=== PATIENT | female | born 1950 | race Caucasian/White ===

== ENCOUNTER → 2018-03-28 12:21 | Outpatient (CLI) | payer MEDICARE, OTHER, SELFPAY ==
--- NOTE | 2018-03-28 12:30 | BI_ITS ---
MAMMOGRAPHY - BILATERAL SCREENING REASON FOR EXAM: Female, 67 years old. Routine annual screening examination. PERTINENT HISTORY: Personal history of breast cancer. Daughter with breast cancer. Aunt with breast cancer. History of prior left lumpectomy with lymph node dissection and radiation therapy. TECHNIQUE: Digital bilateral breast melody (3D mammographic acquisition) in the CC and MLO projections. 2-D mediolateral oblique (MLO) and craniocaudad (CC) views of both breasts were obtained. CAD: Full Field Digital Mammography with Computer Added Detection was performed. COMPARISON: Comparison is made with prior study dated February 13, 2017 and February 02, 2016. FINDINGS: Breast Composition: There are scattered areas of fibroglandular density. There are no dominant masses or suspicious calcifications. The left breast is smaller than the right. This is unchanged. There is evidence of postsurgical changes in the axillary region of the left breast, in keeping with prior lumpectomy. Surgical clips are seen in the left axillary region. No other significant abnormalities are identified. There has been no significant change since the prior study. BI/SCREENING MAMM (CAD), BILAT IMPRESSION: Stable bilateral screening mammogram. Yearly follow-up mammogram recommended. (A) ASSESSMENT CATEGORY: BIRADS Category 2: Benign. A letter regarding these results will be sent to the patient by the facility within 30 days. Approximately 10% of breast cancers are not detected by mammography. A normal mammogram should not delay biopsy of a clinically suspicious abnormality. [id number] Electronically Signed: Zeke Metzger MD at 13:40 EST Tel [phone], Service support ,
== END ==
DX: Z12.31 Encounter for screening mammogram for malignant neoplasm of breast (principal)
CPT/HCPCS: 77063; 77067

== ENCOUNTER → 2019-03-31 10:28 | Outpatient (CLI) | payer MEDICARE, OTHER, SELFPAY ==
--- NOTE | 2019-03-31 10:34 | BI_ITS ---
MAMMOGRAPHY - BILATERAL SCREENING REASON FOR EXAM: Female, 68 years old. Routine annual screening examination. PERTINENT HISTORY: Personal history of breast cancer. Prior left lumpectomy and radiation treatment. Daughter with breast cancer. Aunt with breast cancer. TECHNIQUE: Digital bilateral breast thai (3D mammographic acquisition) in the CC and MLO projections. 2-D mediolateral oblique (MLO) and craniocaudad (CC) views of both breasts were obtained. CAD: Full Field Digital Mammography with Computer Added Detection was performed. COMPARISON: Comparison is made with prior examination dated March 28, 2018. FINDINGS: Breast Composition: There are scattered areas of fibroglandular density. There are no dominant masses or suspicious calcifications. Stable architectural distortion in the deep upper lateral aspect of the left breast in keeping with prior lumpectomy and radiation treatment. The left breast is once again smaller in size as compared to the right breast. No other significant abnormalities are identified. There has been no significant change since the prior study. BI/SCREEN MAMM (CAD) W/THAI BILAT IMPRESSION: Stable bilateral screening mammogram. Yearly follow-up mammogram recommended. (A) ASSESSMENT CATEGORY: BIRADS Category 2: Benign. A letter regarding these results will be sent to the patient by the facility within 30 days. Approximately 10% of breast cancers are not detected by mammography. A normal mammogram should not delay biopsy of a clinically suspicious abnormality. [id number] Electronically Signed: Zeke Metzger, at 11:12 EST , Service support ,
== END ==
DX: Z12.31 Encounter for screening mammogram for malignant neoplasm of breast (principal); C50.412 Malignant neoplasm of upper-outer quadrant of left female breast; I89.0 Lymphedema, not elsewhere classified
CPT/HCPCS: 77063; 77067

== ENCOUNTER → 2020-04-01 10:30 | Outpatient (CLI) | payer MEDICARE, OTHER, SELFPAY ==
--- NOTE | 2020-04-01 10:34 | BI_ITS ---
MAMMOGRAPHY - BILATERAL SCREENING REASON FOR EXAM: Female, 69 years old. Routine annual screening examination. PERTINENT HISTORY: Personal history of breast cancer. Prior left lumpectomy and radiation treatment. Daughter with breast cancer. Aunt with breast cancer. TECHNIQUE: Digital bilateral breast thai (3D mammographic acquisition) in the CC and MLO projections. 2-D mediolateral oblique (MLO) and craniocaudad (CC) views of both breasts were obtained. CAD: Full Field Digital Mammography with Computer Added Detection was performed. COMPARISON: Comparison is made with prior study dated 03/31/2019 and 03/28/2018.. FINDINGS: Breast Composition: There are scattered areas of fibroglandular density. There are no dominant masses or suspicious calcifications. Stable postoperative architectural distortion in the deep upper lateral aspect of the left breast in keeping with history of prior left lumpectomy. Small benign-appearing left axillary lymph nodes. No other significant abnormalities are identified. There has been no significant change since the prior study. BI/SCREEN MAMM (CAD) W/THAI BILAT IMPRESSION: Stable bilateral screening mammogram. Yearly follow-up mammogram recommended. (A) ASSESSMENT CATEGORY: BIRADS Category 2: Benign. A letter regarding these results will be sent to the patient by the facility within 30 days. Approximately 10% of breast cancers are not detected by mammography. A normal mammogram should not delay biopsy of a clinically suspicious abnormality. [id number] Electronically Signed: Zeke Metzger, at 11:31 EST , Service support ,
== END ==
PROVIDERS: Referring Provider Internal Medicine Hematology & Oncology; Visit Provider Internal Medicine Hematology & Oncology
DX: Z12.31 Encounter for screening mammogram for malignant neoplasm of breast (principal); Z85.3 Personal history of malignant neoplasm of breast
CPT/HCPCS: 77063; 77067

== ENCOUNTER 2021-04-05 11:56 | Outpatient (CLI) | payer MEDICARE, OTHER, SELFPAY ==
--- NOTE | 2021-04-05 11:59 | BI_ITS ---
MAMMOGRAPHY - BILATERAL SCREENING REASON FOR EXAM: Female, 70 years old. Routine annual screening examination. PERTINENT HISTORY: Personal history of breast cancer. Prior left lumpectomy with radiation treatment. Daughter with breast cancer. Aunt with breast cancer. TECHNIQUE: Digital bilateral breast thai (3D mammographic acquisition) in the CC and MLO projections. 2-D mediolateral oblique (MLO) and craniocaudad (CC) views of both breasts were obtained. CAD: Full Field Digital Mammography with Computer Added Detection was performed. COMPARISON: Comparison is made with prior study dated 04/01/2020 and 03/31/2019. FINDINGS: Breast Composition: There are scattered areas of fibroglandular density. There are no dominant masses or suspicious calcifications. Once again, the patient is status post lumpectomy in the upper deep lateral aspect of the left breast with resultant breast deformity. This is unchanged. No other significant abnormalities are identified. There has been no significant change since the prior study. BI/SCRN MAMM (CAD)W/THAI BILAT IMPRESSION: Stable bilateral screening mammogram. Yearly follow-up mammogram recommended. (A) ASSESSMENT CATEGORY: BIRADS Category 2: Benign. A letter regarding these results will be sent to the patient by the facility within 30 days. Approximately 10% of breast cancers are not detected by mammography. A normal mammogram should not delay biopsy of a clinically suspicious abnormality. [id number] Electronically Signed: Zeke Metzger MD at 13:54 EST , Service support ,
== END 2021-04-05 23:59 | disposition short-term general hospital (02) ==
LOC: OPBI 11:56
PROVIDERS: Referring Provider Internal Medicine Hematology & Oncology; Visit Provider Internal Medicine Hematology & Oncology
DX: Z12.31 Encounter for screening mammogram for malignant neoplasm of breast (principal); Z85.3 Personal history of malignant neoplasm of breast; Z80.3 Family history of malignant neoplasm of breast
CPT/HCPCS: 77063; 77067

== ENCOUNTER → 2022-04-06 | Outpatient (CLI) | payer MEDICARE, OTHER, SELFPAY ==
--- NOTE | 2022-04-06 10:04 | BI_ITS ---
MAMMOGRAPHY - BILATERAL SCREENING REASON FOR EXAM: Female, 71 years old. Routine annual screening examination. PERTINENT HISTORY: Personal history of breast cancer. Prior left lumpectomy and radiation treatment. Daughter with breast cancer. Aunt with breast cancer. TECHNIQUE: Digital bilateral breast thai (3D mammographic acquisition) in the CC and MLO projections. 2-D mediolateral oblique (MLO) and craniocaudad (CC) views of both breasts were obtained. CAD: Full Field Digital Mammography with Computer Added Detection was performed. COMPARISON: Comparison is made with prior study dated 04/05/2021 and 04/01/2020. FINDINGS: Breast Composition: There are scattered areas of fibroglandular density. There are no dominant masses or suspicious calcifications. Once again, the patient is status post lumpectomy in the deep upper lateral aspect of the left breast with resultant postoperative scarring. No other significant abnormalities are identified. There has been no significant change since the prior study. BI/SCRN MAMM (CAD)W/THAI BILAT IMPRESSION: Stable bilateral screening mammogram. Yearly follow-up mammogram recommended. (A) ASSESSMENT CATEGORY: BIRADS Category 2: Benign. A letter regarding these results will be sent to the patient by the facility within 30 days. Approximately 10% of breast cancers are not detected by mammography. A normal mammogram should not delay biopsy of a clinically suspicious abnormality. [id number] Electronically Signed: Zeke Metzger MD at 11:13 EST ,
== END | disposition home or self-care (01) ==
LOC: OPBI 10:02
PROVIDERS: Referring Provider Internal Medicine; Visit Provider Internal Medicine
DX: Z12.31 Encounter for screening mammogram for malignant neoplasm of breast (principal); Z80.3 Family history of malignant neoplasm of breast; Z85.3 Personal history of malignant neoplasm of breast; Z92.3 Personal history of irradiation
CPT/HCPCS: 77063; 77067

== ENCOUNTER → 2023-04-09 | Outpatient (CLI) | payer MEDICARE, OTHER, SELFPAY ==
--- NOTE | 2023-04-09 09:48 | BI_ITS ---
MAMMOGRAPHY - BILATERAL SCREENING REASON FOR EXAM: Female, 72 years old. Routine annual screening examination. PERTINENT HISTORY: Personal history of breast cancer. Prior left lumpectomy with radiation treatment. Daughter with breast cancer. Aunt with breast cancer. TECHNIQUE: Digital bilateral breast thai (3D mammographic acquisition) in the CC and MLO projections. 2-D mediolateral oblique (MLO) and craniocaudad (CC) views of both breasts were obtained. CAD: Full Field Digital Mammography with Computer Added Detection was performed. COMPARISON: Comparison is made with prior study dated April 06, 2022 and April 05, 2021. FINDINGS: Breast Composition: There are scattered areas of fibroglandular density. There are no dominant masses or suspicious calcifications. Once again, the patient is status post lumpectomy in the deep upper lateral aspect of the left breast. Postoperative changes are stable. No other significant abnormalities are identified. There has been no significant change since the prior study. BI/SCRN MAMM (CAD)W/THAI BILAT IMPRESSION: Stable bilateral screening mammogram. Yearly follow-up mammogram recommended. (A) ASSESSMENT CATEGORY: BIRADS Category 2: Benign. A letter regarding these results will be sent to the patient by the facility within 30 days. Approximately 10% of breast cancers are not detected by mammography. A normal mammogram should not delay biopsy of a clinically suspicious abnormality. [id number] Electronically Signed: Zeke Metzger MD at 10:32 EST ,
--- OUTSIDE RECORDS SUMMARY | 2023-04-09 10:12 | XMS RPT_ITS | CCD ---
Author Name Unknown Address 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 Name Role Phone ANU MENDOSA, RADHA Admitting Unavaila ble ANU MENDOSA NP Attending Unavaila ble PRATHER, NEREIDA Primary Care Unavailable PRATHER, NEREIDA Primary Care Unavailable BEDDELLFIORELLA Admitting Unavailable BEDFIORELLA GUPTA Attending Unavailable SELVIN GONZALES Consulting Unavailable AZALIA PENDLETON Consulting Unavailable Peter MORALES [facility] Primary Care Provider Peter MORALES [facility] Primary Care Provider [phone] Peter MORALES [facility] Primary Care Provider [phone] Peter MORALES [facility] Primary Care Provider SELVIN AYALA Referring Unavail able SELVIN AYALA Attending Unavail able PETER, NEREIDA Primary Care Unavailable PETER, NEREIDA Primary Care Unavailable KATHRYN NORTON Attending Unava ilable PETER, NEREIDA Primary Care Unavailable PETER, NEREIDA Primary Care Unavailable SEVERO WHITE Referring Unavailable SELVIN AYALA Referring Unavail able PETER, NEREIDA Primary Care Unavailable PETER, NEREIDA Primary Care Unavailable PETER, NEREIDA Referring Unavailable PETER, NEREIDA Primary Care Unavailable SUGAR HANKS Referring Unavailable PETER, NEREIDA Primary Care Unavailable CRISTÓBAL VALENCIA Referring Unavailable PETER, NEREIDA Primary Care Unavailable MIGUEL A, SIGIFREDO Referring Unavailable PETER, NEREIDA Primary Care Unavailable MIGUEL A, SIGIFREDO Referring Unavailable PETER, NEREIDA Primary Care Unavailable PETER, NEREIDA Primary Care Unavailable MIGUEL A, SIGIFREDO Referring Unavailable [facility] Primary Care Unavailable [facility] Referring Unavailable [facility] Primary Care Unavailable HANKS, SUGAR E Attending Unavailable [facility] Primary Care Unavailable MIGUEL A, SIGIFREDO Attending Unavailable [facility] Primary Care Unavailable HANKS, SUGAR E Referring Unavailable MIGUEL A, SIGIFREDO Attending Unavailable [facility] Primary Care Unavailable HANKS, SUGAR E Referring Unavailable [facility] Primary Care Unavailable HANKS, SUGAR E Attending Unavailable Allergies Allergy Classification Reported Allergen(s) Allergy Type Date of Onset Reaction(s) Facility (18 sources) Seasonal allergy; Translations: [SEASONAL ALLERGIES] Propensity to adverse reactions 7 Other: See Comments [facility] Medications Completed/Discontinued Medications Medication Drug Class(es) Dates Sig (Normalized) Sig (Original) CALCIUM CITRATE-VITAMIN D3 ORAL (15 sources) take 1 tablet by rosana th once daily CALCIUM CITRATE-VITAMIN D3 ORAL Take 1 tablet by mouth once daily. 0 Active Problems Active Problems Problem Classification Problem Date Documented Da te Episodic/Chronic Abdominal hernia (1 source) Diaphragmatic hernia without obstruction or gangrene; Translations: [DIAPH HERNIA W/O OBST/GANGRENE] Onset: 02-26-2021 Episodic Cancer of breast (15 sources) Malignant tumor of breast ; Translations: [Malignant neoplasm of unspecified site of unspecified female breast] 12-27-2016 Chronic Cancer of breast (2 sources) Personal history of malignant neoplasm of breast; Translations: [History of malignant neoplasm of breast] Onset: 02-26-2021 03-27-2023 Episodic Disorders of lipid metabolism (2 sources) Hyperlipidemia, unspecified; Translations: [HYPERLIPIDEMIA UNSPECIFIED] Onset: 02-26-2021 Chronic Esophageal disorders (17 sources) Gastro-esophageal reflux disease without esophagitis; Translations: [Gastroesophageal reflux disease] Onset: 11-28-2017 11-28-2017 Chronic Essential hypertension (2 sources) Essential (primary) hypertension; Translations: [Hypertension, unspecified type] Onset: 08-02-2022 Chronic Immunizations and screening for infectious disease (1 source) Contact with and (suspected) exposure to infections with a predominantly sexual mode of transmission; Translations: [Possible exposure to STD] Onset: 03-09-2023 Episodic Menopausal disorders (1 source) Long-term current use of thyroid hormone replacement therapy; Translations: [Hormone replacement therapy] Episodic Non-Hodgkin`s lymphoma (3 sources) Mantle cell lymphoma; Translations: [Mantle cell lymphoma, lymph nodes of axilla and upper limb] Onset: 04-02-2023 03-16-2023 Chronic Nutritional deficiencies (1 source) Vitamin D deficiency, unspecified; Translations: [Avitaminosis D] Onset: 08-14-2022 Chronic Osteoporosis (1 source) Age-related osteoporosis without current pathological fracture; Translations: [Age-related osteoporosis without current pathological fracture] Onset: 11-13-2022 Chronic Other aftercare (1 source) Patient encounter status; Translations: [Other senior care (current) drug therapy] Episodic Other aftercare (1 source) Long-term current use of levothyroxine; Translations: [Other senior care (current) drug therapy] Episodic Other diseases of veins and lymphatics (1 source) Lymphedema, not elsewhere classified; Translations: [LYMPHEDEMA NOT ELSEWHERE CLASSIFIED] Onset: 02-26-2021 Chronic Other female genital disorders (1 source) Other specified noninflammatory disorders of vagina; Translations: [Vaginal discharge] Onset: 03-09-2023 Episodic Other gastrointestinal disorders (2 sources) History of bypass of stomach; Translations: [Bariatric surgery status] Episodic Other hematologic conditions (1 source) History of histiocytosis; Translations: [Personal history of diseases of the blood and blood-forming organs and certain disorders involving the immune mechanism] 03-27-2023 Episodic Other inflammatory condition of skin (1 source) Erythema intertrigo; Translations: [ERYTHEMA INTERTRIGO] Onset: 02-26-2021 Episodic Other nutritional; endocrine; and metabolic disorders (2 sources) Localized adiposity; Translations: [LOCALIZED ADIPOSITY] Onset: 02-26-2021 Chronic Other upper respiratory infections (1 source) Acute upper respiratory infection, unspecified; Translations: [Upper respiratory tract infection, unspecified type] Onset: 03-09-2023 Episodic Residual codes; unclassified (15 sources) Sleep apnea; Translations: [Sleep apnea, unspecified] 12-27-2016 Chronic Residual codes; unclassified (1 source) Obstructive sleep apnea (adult) (pediatric); Translations: [Obstructive sleep apnea (adult) (pediatric)] Onset: 08-14-2022 Chronic Residual codes; unclassified (1 source) Personal history of irradiation; Translations: [PERSONAL HISTORY OF IRRADIATION] Onset: 02-26-2021 Episodic Thyroid disorders (20 sources) Hypothyroidism, unspecified; Translations: [Autoimmune thyroiditis] Onset: 09-03-2015 Chronic Unclassified (1 source) Radiology [place] Onset: 04-02-2023 Past or Other Problems Problem Classification Problem Date Documented Da te Episodic/Chronic Deficiency and other anemia (1 source) Other iron deficiency anemias; Translations: [Iron deficiency anemia secondary to inadequate dietary iron intake] Onset: 08-14-2022 Episodic Fluid and electrolyte disorders (15 sources) Dehydration; Translations: [Dehydration] Onset: 07-25-2017 07-25-2017 Episodic Lymphadenitis (9 sources) Localized enlarged lymph nodes; Translations: [Localized enlarged lymph nodes] Onset: 07-15-2022 Episodic Other aftercare (3 sources) 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; Translations: [[facility] CURRENT DRUG THERAPY] Onset: 02-26-2021 Episodic Other diseases of kidney and ureters (15 sources) Hydronephrosis; Translations: [Unspecified hydronephrosis] Onset: 11-08-2017 11-08-2017 Episodic Other gastrointestinal disorders (3 sources) Bariatric surgery status; Translations: [BARIATRIC SURGERY STATUS] Onset: 02-26-2021 Episodic Other non-traumatic joint disorders (15 sources) Stiffness of right shoulder; Translations: [Stiffness of right shoulder, not elsewhere classified] Onset: 01-22-2017 01-22-2017 Episodic Results Test Name Value Interpretation Reference Range Facil ity Vital Signs Date Time Vital Sign Value Performing Clinician Douglas muñiz 09-12-2022 12:51-0400 Body height 160 cm Selvin Ayala MD Work Phone: [facility] 09-12-2022 12:51-0400 Body weight 88 kg Selvin Ayala MD Work Phone: [facility] 09-12-2022 12:51-0400 Diastolic blood pressure 70 mm[Hg] Selvin Ayala MD Work Phone: [facility] 09-12-2022 12:51-0400 Heart rate 81 /min Selvin Ayala MD Work Phone: [facility] 09-12-2022 12:51-0400 Systolic blood pressure 109 mm[Hg] Selvin Ayala MD Work Phone: [facility] 01-17-2022 12:44-0400 Body height 160 cm Sugar Hanks MD Work Phone: [facility] 01-17-2022 12:44-0400 Body weight 83.46 kg Sugar Hanks MD Work Phone: [facility] 01-17-2022 12:44-0400 Diastolic blood pressure 82 mm[Hg] Sugar Hanks MD Work Phone: [facility] 01-17-2022 12:44-0400 Heart rate 70 /min Sugar Hanks MD Work Phone: [facility] 01-17-2022 12:44-0400 Systolic blood pressure 130 mm[Hg] Sugar Hanks MD Work Phone: [facility] 09-20-2021 13:06-0400 Body height 160 cm Selvin Ayala MD Work Phone: [facility] 09-20-2021 13:06-0400 Body weight 82.37 kg Selvin Ayala MD Work Phone: [facility] 09-20-2021 13:06-0400 Diastolic blood pressure 71 mm[Hg] Selvin Ayala MD Work Phone: [facility] 09-20-2021 13:06-0400 Heart rate 74 /min Selvin Ayala MD Work Phone: [facility] 09-20-2021 13:06-0400 Systolic blood pressure 134 mm[Hg] Selvin Ayala MD Work Phone: [facility] Encounters Encounter Date Encounter Type Care Provider Facility Start: 04-04-2023 End: 04-04-2023 ambulatory NEREIDA GREEN Facility:[facility] Start: 04-04-2023 Encounter for preprocedural cardiovascular examination NEREIDA GREEN [facility] Start: 04-02-2023 ambulatory SIGIFREDO MIGUEL A Facili ty:[facility] Start: 03-16-2023 End: 03-17-2023 ambulatory NEREIDA GREEN Facility:[facility] Start: 03-16-2023 End: 03-16-2023 ambulatory SIGIFREDO MIGUEL A Facility:[facility] Start: 03-16-2023 End: 03-16-2023 ambulatory Sigifredo Rubin MD Work Phone: Hematology/Oncology Procedures Date Procedure Procedure Detail Performing Clinician Start: 02-21-2023 Ct soft tissue neck w/contrast material Nereida Green MD Work Phone: Start: 11-13-2022 Dxa bone density alondra dy 1/> sites axial skel Nereida Green MD Work Phone: Start: 08-02-2022 Lipid 1996 panel - S naa or Plasma Pietro Davis RN Start: 07-19-2022 Ct soft tissue neck w/contrast material Sugar Hanks MD Work Phone: Start: 01-16-2022 Ct soft tissue neck w/contrast material Nereida Green MD Work Phone: Start: 03-28-2018 Mammography Selvin ko MD Work Phone: Plan of Treatment Date Care Activity Detail Author Start: 05-10-2031 Urine microalbumin profile [facility] Start: 08-03-2027 Lipid 1996 panel - Serum or Plasma Lipid Screening [facility] Start: 08-03-2027 Lipid panel Lipid Screening [facility] Start: 08-03-2027 LIPID SCREEN LIPID SCREEN [facility] Start: 02-01-2027 LIPID SCREEN LIPID SCREEN [facility] Start: 08-25-2026 LIPID SCREEN LIPID SCREEN [facility] Start: 03-16-2026 Diabetes Screening Diabetes Screening [facility] Start: 08-02-2025 DIABETES SCREEN DIABETES SCREEN [facility] Start: 08-02-2025 Diabetes Screening Diabetes Screening [facility] Start: 02-01-2025 DIABETES SCREEN DIABETES SCREEN [facility] Start: 08-25-2024 DIABETES SCREEN DIABETES SCREEN [facility] Start: 03-30-2023 End: 03-16-2024 Echocardiography ECHO Cardiology Routine Mantle cell lymphoma of axilla (HCC) Encounter for preprocedural cardiovascular examination Expected: 03/30/2023, Expires: 03/16/2024 [facility] Work Phone: Immunizations Immunization Date Immunization Notes Care Provider Fa cility 05-10-2021 tetanus toxoid, redu boone diphtheria toxoid, and acellular pertussis vaccine, adsorbed Selvin Ayala MD Work Phone: [facility] 01-31-2021 influenza virus vacc ine, unspecified formulation Selvin Ayala MD Work Phone: [facility] 06-27-2016 pneumococcal polysaccharide vaccine, 23 valent Selvin Ayala MD Work Phone: [facility] Work Phone: 06-26-2016 pneumococcal conjuga te vaccine, 7 valent Selvin Ayala MD Work Phone: [facility] Work Phone: 07-28-2011 tetanus and diphther ia toxoids, adsorbed, preservative free, for adult use (5 Lf of tetanus toxoid and 2 Lf of diphtheria toxoid) Selvin Ayala MD Work Phone: [facility] Work Phone: 01-28-2009 novel influenza-H1N1 -09, preservative-free, injectable Selvin Ayala MD Work Phone: [facility] Work Phone: Payers Date Payer Category Payer Private Health Insurance [employer] A ETNA MEDICARE SUPPLEMENT [id number] 2016-Present [phone] [address] [address] [place] [address] Indemnity [id number] 2016 Private Health Insurance [employer] A ETNA MEDICARE SUPPLEMENT [id number] 2016-Present [phone] [address] [address] [place] [address] Indemnity [id number] 2015 Medicare MEDICARE MEDICAR E A AND B [id number] 2015-Present [phone] [place] [address] Medicare [id number] 2015 Medicare MEDICARE MEDICAR E A AND B [id number] 2015-Present [phone] [place] [address] Medicare [id number] 1959 Medicare [id number] 1959 Medicare [id number] 1950 Unknown [id number] 1950 Unknown [id number] Social History Date Type Detail Facility Start: 12-04-2011 End: 09-06-2015 Tobacco smoking status NHIS Never smoked tobacco [facility] Start: 12-04-2011 End: 09-06-2015 Tobacco use and exposure Smokeless tobacco non-user [facility] Start: 09-20-2021 End: 03-27-2023 Alcohol intake Current non-drinker of alcohol (finding) [facility] Start: 1950 Sex Assigned At Female [facility] Start: 09-10-2021 End: 01-16-2022 Exposure to SARS-CoV-2 (event) Not sure [facility] Start: 10-12-2018 End: 09-12-2022 History of Social function [facility] Start: 10-12-2018 End: 09-12-2022 Tobacco use panel [facility] PHQ2 Score 0 [facility] Start: 12-12-2018 Gender identity Identifies as female gender (finding) [facility] Start: 12-12-2018 Sexual orientation Heterosexual (jam duron) [facility] Goals Date Patient Goal Desired Activity /State Personal health goal Clinical Notes 01-05-2017 to 04-02-2023 Patient InstructionsSigifredo Rubin MD - 03/16/2023 2:56 PM Sugar Adams MD - 03/07/2023 9:12 AM Sugar Adams MD - 03/07/2023 9:01 AM ESTPatient InstructionsPatient Instructions Note Date & Type Note Facility 04-02-2023 Note HNO ID: [id number] Author: ESTEVAN PHIPPS RT(R) Service: Radiology Author Type: Technologist Type: Progress Notes Filed: 04/02/2023 12:18 Note Text: RADIOLOGY SERVICE PROGRESS NOTE SERVICE DATE: 04/02/2023 SERVICE TIME: 12:17 PM PATIENT IDENTITY VERIFICATION COMPLETED USING TWO (2) STANDARD IDENTIFIERS: Name and Date of confirmed by patient verbally FALL SCREENING: Has the patient had 2 falls in the last year or 1 fall with injury or currently using an Ambulatory Assistive Device (Walker, Cane, Wheelchair, Crutches, etc.)? No PATIENT GENDER DATA: .female : No ALLERGIES: Reviewed and unchanged MEDICATIONS REVIEWED: Yes PATIENT RELEVANT IMPLANT DATA REVIEWED: Not Applicable CREATININE: Creatinine Date Value Ref Range Status 03/16/2023 0.82 0.58 - 0.96 mg/dL Final 02/19/2023 0.93 0.58 - 0.96 mg/dL Final 08/02/2022 0.96 0.58 - 0.96 mg/dL Final Estimated Glomerular Filtration Rate Date Value Ref Range Status 03/16/2023 76 >=60 mL/min/1.73m? Final Comment: Estimated Glomerular Filtration Rate (eGFR) is calculated using the 2020 CKD-EPI creatinine equation. This equation utilizes serum creatinine, sex, and age as parameters. The creatinine assay has traceable calibration to isotope dilution-mass spectrometry. Refer to KDIGO guidelines for clinical interpretation. In patients with unstable renal function, e.g. those with acute kidney injury, the eGFR may not accurately reflect actual GFR. eGFR- Date Value Ref Range Status 01/18/2021 >60 Final P.O.C.T. RESULTS: N/A April 02, [address] PERFORMED: No IV SITE: Ambulatory: A peripheral IV was started in the Right antecubital site with a Angio cath: 22 gauge. POST EXAM PIV STATUS: Discontinued PROCEDURE TYPE: NM INJECT: PET/CT BODY SCAN. 14.8 mCi F18 FDG. No other medications given.. ADMINISTRATION TIME: 1207 PATIENT DISCHARGED TO: Ambulatory patient, left [place] department area. A Diagnostic radioactive procedure has taken place, with no further precautions necessary other than routine body substance precautions. More information regarding radiation safety can be found using this link: [email or web address] SIGNATURE: RT Isaías(R) PATIENT NAME: Pavan Covington DATE: April 02, 2023 TIME: 12:17 PM PAGER/CONTACT #: [facility] 03-16-2023 Note HNO ID: [id number] Author: Sigifredo Rubin MD Service: ? Author Type: Physician Type: Progress Notes Filed: 03/27/2023 3:12 AM Note Text: Consultation requested by Dr. Sugar Hanks for an opinion regarding mantle cell lymphoma. My final recommendations will be communicated back to the requesting physician by way of shared Medical record or letter to requesting physician via US mail. Presenting complaint: Patient Pavan Covington was sent to my office to be evaluated for mantle cell lymphoma. 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 02/02/2003 left sentinel lymph node biopsy ( three reactive lymph nodes with sinus histiocytosis) and left axillary dissection (14 reactive lymph nodes with sinus histiocytosis) 02/2003 radiation therapy to left breast [phone] tamoxifen x 10 years 05/10/2021 fall with hitting head on the car requiring ER visit 05/10/2021 CT head demonstrating 8 mm left parotid lymph node or nodule 01/16/2022 CT neck showed multiple nonspecific lymph nodes mildly increased in size since 200607/19/2022 CT neck showed scattered cervical lymph nodes which likely reactive. Minimal increase in size of the right axillary lymph nodes since 01/16/2022 02/21/2023 CT neck showed mildly prominent cervical lymph nodes, mildly increasing size of right axillary nodes, mild interval increase in size of the 6 mm nodule in the right upper lung 03/07/2023 right axillary lymph node FNA revealed atypical lymphoid proliferation suspicious for lymphoma. FISH was positive for cyclin D1 concerning for diagnosis of mantle cell lymphoma 03/14/2023 right excisional axillary lymph node biopsy revealed mantle cell lymphoma. Mantle cells were positive for CD5, CD20, Cyclin D1, BCL2. Mantle cells were negative for CD3, CD10, BCL6. Ki-67 was <10%. 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 It is unknown at this time if there association between sinus histiocytosis and mantle cell lymphoma. Plan to proceed with staging PET/CT and ECHO to determine management of mantle cell lymphoma. A low Ki-67 index (<10%) may indicate a more indolent disease course and could justify a watch and wait approach. Plan to obtain CBC, CPM, LDH, remote hepatitis panel, tumor lysis labs to include uric acid and phosphorus. 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 02/02/2003 left sentinel lymph node biopsy ( three reactive lymph nodes with sinus histiocytosis) and left axillary dissection (14 reactive lymph nodes with sinus histiocytosis) 02/2003 adjuvant radiation therapy to left breast [phone] adjuvant tamoxifen x 10 years Plan: history was reviewed Return in about 25 days (around 04/10/2023) for follow-up with provider. 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 She underwent left sentinel lymph node biopsy ( three reactive lymph nodes with sinus histiocytosis) and left axillary dissection (14 reactive lymph nodes with sinus histiocytosis) on 02/02/2003. She completed adjuvant radiation therapy to left breast in Feb 2003. She completed adjuvant tamoxifen x 10 years. Patient had a fall with hitting head on the car requiring ER visit on 05/10/2021. CT head on 05/10/2021 demonstrated 8 mm left parotid lymph node or nodule. Radiologist recommended repeat in [address] neck on 01/16/2022 showed multiple nonspecific lymph nodes mildly increased in size since 2006. Repeat CT neck on 07/19/2022 showed scattered cervical lymph nodes which likely reactive. Minimal increase in size of the right axillary lymph nodes was noted since 01/16/2022. Repeat CT neck on 02/21/2023 showed mildly prominent cervical lymph nodes, mildly inc (more content not included)... [facility] 03-16-2023 Note HNO ID: [id number] Author: Sigifredo Rubin MD Service: ? Author Type: Physician Type: Progress Notes Filed: 03/16/2023 2:36 PM Note Text: Dr. Rubin agreed to see patient at [place] office. Written communication was sent by Dr. Rubin asking to schedule at [place] office. Patient was roomed at 1:14 pm in [place] after Dr. Rubin left office to go to [place] Office at 1:00 pm. Patient agreed to be seen at [place] office at 2:30 pm. Sigifredo Rubin MD March 16, 2023 2:34 PM [facility] 03-16-2023 Instructions Sigifredo Rubin MD - 03/16/2023 3:13 PM EST Please send patient to lab today Please schedule PET/CT in 2 weeks Please schedule ECHO in 2 weeks Please schedule follow-up on 04/10/[address] [place] [address] Rubin Thank you documented in this encounter [facility] 03-16-2023 History of Present illness Narrative Consultation requested by Dr. Sugar Hanks for an opinion regarding mantle cell lymphoma. My final recommendations will be communicated back to the requesting physician by way of shared Medical record or letter to requesting physician via [place] mail. Presenting complaint: Patient Pavan Covington was sent to my office to be evaluated for mantle cell lymphoma. 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 02/02/2003 left sentinel lymph node biopsy ( three reactive lymph nodes with sinus histiocytosis) and left axillary dissection (14 reactive lymph nodes with sinus histiocytosis) 02/2003 radiation therapy to left breast [phone] tamoxifen x 10 years 05/10/2021 fall with hitting head on the car requiring ER visit 05/10/2021 CT head demonstrating 8 mm left parotid lymph node or nodule 01/16/2022 CT neck showed multiple nonspecific lymph nodes mildly increased in size since 200607/19/2022 CT neck showed scattered cervical lymph nodes which likely reactive. Minimal increase in size of the right axillary lymph nodes since 01/16/2022 02/21/2023 CT neck showed mildly prominent cervical lymph nodes, mildly increasing size of right axillary nodes, mild interval increase in size of the 6 mm nodule in the right upper lung 03/07/2023 right axillary lymph node FNA revealed atypical lymphoid proliferation suspicious for lymphoma. FISH was positive for cyclin D1 concerning for diagnosis of mantle cell lymphoma 03/14/2023 right excisional axillary lymph node biopsy revealed mantle cell lymphoma. Mantle cells were positive for CD5, CD20, Cyclin D1, BCL2. Mantle cells were negative for CD3, CD10, BCL6. Ki-67 was <10%. 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 It is unknown at this time if there association between sinus histiocytosis and mantle cell lymphoma. Plan to proceed with staging PET/CT and ECHO to determine management of mantle cell lymphoma. A low Ki-67 index (<10%) may indicate a more indolent disease course and could justify a watch and wait approach. Plan to obtain CBC, CPM, LDH, remote hepatitis panel, tumor lysis labs to include uric acid and phosphorus. 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 02/02/2003 left sentinel lymph node biopsy ( three reactive lymph nodes with sinus histiocytosis) and left axillary dissection (14 reactive lymph nodes with sinus histiocytosis) 02/2003 adjuvant radiation therapy to left breast [id number] adjuvant tamoxifen x 10 years Plan: history was reviewed Return in about 25 days (around 04/10/2023) for follow-up with provider. Medical Decision Making: Problems: High: Illness/injury w/ threat to life/body function Data: Unique test result(s) reviewed: 3+ Assessment requiring an independent historian(s) Independent interpretation of test from other physician/QHCP Risk: Moderate: Moderate risk from testing/treatment Medical Decision Making Level: 5 - High HPI: Patient is a delightful 72 year old lady with history of left grade 2 invasive ductal carcinoma with ER+, MD+ status post left lumpectomy on 01/22/2003. She underwent left sentinel lymph node biopsy ( three reactive lymph nodes with sinus histiocytosis) and left axillary dissection (14 reactive lymph nodes with sinus histiocytosis) on 02/02/2003. She completed adjuvant radiation therapy to left breast in Feb 2003. She completed adjuvant tamoxifen x 10 years. Patient had a fall with hitting head on the car requiring ER visit on 05/10/2021. CT head on 05/10/2021 demonstrated 8 mm left parotid lymph node or nodule. Radiologist recommended repeat in [address] neck on 01/16/2022 showed multiple nonspecific lymph nodes mildly increased in size since 2006. Repeat CT neck on 07/19/2022 showed scattered cervical lymph nodes which likely reactive. Minimal increase in size of the right axillary lymph nodes was noted since 01/16/2022. Repeat CT neck on 02/21/2023 showed mildly prominent cervical lymph nodes, mildly increasing size of right axillary nodes, mild interval increase in size of the 6 mm nodule in the right upper lung. She underwent right axillary lymph node FNA on 03/07/2023 revealed atypical lymphoid proliferation suspicious for lymphoma. FISH was positive for cyclin D1 concerning for diagnosis of mantle cell lymphoma. The right excisional axillary lymph node biopsy on 03/14/2023 revealed mantle cell lymphoma. Mantle cells were positive for CD5, CD20, Cyclin D1, BCL2. Mantle cells were negative for CD3, CD10, BCL6. Ki-67 was <10%. Patient is very anxious. Her from melanoma at age 40 years. 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 Lymphedema Overweight Radiation Sleep apnea Thyroid disease PAST SURGICAL HISTORY Procedure Laterality Date BIOPSY/REMOVAL, LYMPH NODE(S) Left 2002 17-removed axillary CHOLECYSTECTOMY HX lap CPD FLOWTRON SLEEVE X-LG (BARIATRIC) (SP) 05/2017 Sleeve D+C LUMPECTOMY/RADIOTHERAPY DIAG MAMM/A10 Left 2002 NASAL SURGERY PROCEDURE ROTATOR CUFF REPAIR Right 2017 TONSILLECTOMY HX Childhood TUBAL LIGATION, FAMILY HISTORY Problem Relation Age of Onset Thyroid Mother Unclear thyroid issue Osteoporosis Mother Breast Cancer Paternal Aunt Stroke Father Thyroid Father Thyroid cancer SOCIAL HISTORY Social History Tobacco Use Smoking status: Never Smokeless tobacco: Never Vaping Use Vaping Use: Never used Substance Use Topics Alcohol use: No Drug use: No ALLERGIES: ALLERGIES Allergen Reactions Seasonal Allergies Other: See Comments Sore throat MEDICATIONS: Current Outpatient Medications Medication Sig levothyroxine (SYNTHROID) 112 mcg tablet Take 1 tablet by mouth once daily. ZINC ORAL Take by mouth. simvastatin (ZOCOR) 10 mg tablet Take 10 mg by mouth daily at bedtime. Omeprazole 40 mg capsule Take 40 mg by mouth once daily. MULTIVITAMIN ORAL Take by mouth once daily. Bariatric vitamin CALCIUM CITRATE-VITAMIN D3 ORAL Take 1 tablet by mouth once daily. No current facility-administered medications for this visit. REVIEW OF SYSTEMS: Review of Systems Constitutional: Negative for chills and fatigue. HENT: Negative for mouth sores and trouble swallowing. Eyes: Negative for eye problems and icterus. Respiratory: Negative for chest tightness, cough, hemoptysis and shortness of breath. Cardiovascular: Negative for chest pain and palpitations. Gastrointestinal: Negative for abdominal pain and blood in stool. Endocrine: Negative for hot flashes. Genitourinary: Negative for difficulty urinating and hematuria. Musculoskeletal: Negative for back pain, gait problem and neck pain. Skin: Negative for itching, rash and wound. Neurological: Negative for gait problem and light-headedness. Hematological: Positive for adenopathy. Does not bruise/bleed easily. Psychiatric/Behavioral: Negative for decreased concentration and depression. The patient is nervous/anxious. PHYSICAL EXAMINATION: VITALS: BP 162/98 RR 19 HR 82 T 98F Height 159.9 cm Weight 88.8 kg Physical Exam Vitals and nursing note reviewed. Constitutional: General: She is not in acute distress. Appearance: She is not toxic-appearing or diaphoretic. HENT: Head: Normocephalic and atraumatic. Eyes: General: No scleral icterus. Neck: Comments: No bulky cervical, axillary or inguinal adenopathy Cardiovascular: Rate and Rhythm: Normal rate and regular rhythm. Heart sounds: Normal heart sounds. No murmur heard. Pulmonary: Effort: Pulmonary effort is normal. No respiratory distress. Breath sounds: Normal breath sounds. Abdominal: General: There is no distension. Tenderness: There is no abdominal tenderness. There is no guarding or rebound. Comments: No hepatosplenomegaly Musculoskeletal: General: No swelling. Cervical back: Neck supple. No rigidity. Lymphadenopathy: Cervical: No cervical adenopathy. Skin: Coloration: Skin is not jaundiced or pale. Neurological: Mental Status: She is alert. Mental status is at baseline. Psychiatric: Mood and Affect: Mood normal. Behavior: Behavior normal. Thought Content: Thought content normal. Judgment: Judgment normal. LABS: Appointment on 03/16/2023 Component Date Value Ref Range Status WBC 03/16/2023 7.06 3.70 - 11.00 k/uL Final RBC 03/16/2023 4.70 3.90 - 5.20 m/uL Final Hemoglobin 03/16/2023 13.1 11.5 - 15.5 g/dL Final Hematocrit 03/16/2023 39.9 36.0 - 46.0 % Final MCV 03/16/2023 84.9 80.0 - 100.0 fL Final MCH 03/16/2023 27.9 26.0 - 34.0 pg Final MCHC 03/16/2023 32.8 30.5 - 36.0 g/dL Final RDW-CV 03/16/2023 13.0 11.5 - 15.0 % Final Platelet Count 03/16/2023 285 150 - 400 k/uL Final MPV 03/16/2023 9.5 9.0 - 12.7 fL Final Neutrophils % 03/16/2023 63.0 % Final Abs Neut 03/16/2023 4.46 1.45 - 7.50 k/uL Final Lymphocytes % 03/16/2023 27.8 % Final Abs Lymph 03/16/2023 1.96 1.00 - 4.00 k/uL Final Monocytes % 03/16/2023 6.7 % Final Abs Bartholomew 03/16/2023 0.47 <0.87 k/uL Final Eosinophils % 03/16/2023 1.6 % Final Abs Eosin 03/16/2023 0.11 <0.46 k/uL Final Basophils % 03/16/2023 0.6 % Final Abs Baso 03/16/2023 0.04 <0.11 k/uL Final Immature Granulocytes % 03/16/2023 0.3 % Final Abs Immature Gran 03/16/2023 <0.03 <0.10 k/uL Final NRBC 03/16/2023 0.0 /100 WBC Final Absolute nRBC 03/16/2023 <0.01 <0.01 k/uL Final Diff Type 03/16/2023 Auto Final Protein, Total 03/16/2023 7.8 6.3 - 8.0 g/dL Final Albumin 03/16/2023 3.9 3.9 - 4.9 g/dL Final Calcium, Total 03/16/2023 9.0 8.5 - 10.2 mg/dL Final Bilirubin, Total 03/16/2023 0.2 0.2 - 1.3 mg/dL Final Alkaline Phosphatase 03/16/2023 114 34 - 123 U/L Final AST 03/16/2023 18 13 - 35 U/L Final ALT 03/16/2023 16 7 - 38 U/L Final Glucose 03/16/2023 147 (H) 74 - 99 mg/dL Final BUN 03/16/2023 13 7 - 21 mg/dL Final Creatinine 03/16/2023 0.82 0.58 - 0.96 mg/dL Final Sodium 03/16/2023 140 136 - 144 mmol/L Final Potassium 03/16/2023 3.7 3.7 - 5.1 mmol/L Final Chloride 03/16/2023 103 97 - 105 mmol/L Final CO2 03/16/2023 28 22 - 30 mmol/L Final Anion Gap 03/16/2023 9 9 - 18 mmol/L Final Estimated Glomerular Filtration Ra* 03/16/2023 76 >=60 mL/min/1.73m Final LD 03/16/2023 220 (H) 135 - 214 U/L Final Uric Acid 03/16/2023 4.4 2.5 - 6.6 mg/dL Final Phosphorus 03/16/2023 3.5 2.7 - 4.8 mg/dL Final Hep C Antibody IA 03/16/2023 Negative Negative Final HBsAg 03/16/2023 Negative Negative Final Hep B Surface Ab, Qual 03/16/2023 Negative Final No serological evidence of immunity to Hepatitis B Virus. Hep B Surface Ab Quant 03/16/2023 <8.00 mIU/mL Final Hepatitis B Core Ab, Total 03/16/2023 Negative Negative Final RADIOLOGICAL REPORTS: 05/10/2021 CT head demonstrating 8 mm left parotid lymph node or nodule 01/16/2022 CT neck showed multiple nonspecific lymph nodes mildly increased in size since 200607/19/2022 CT neck showed scattered cervical lymph nodes which likely reactive. Minimal increase in size of the right axillary lymph nodes since 01/16/2022 02/21/2023 CT neck showed mildly prominent cervical lymph nodes, mildly increasing size of right axillary nodes, mild interval increase in size of the 6 mm nodule in the right upper lung HISTO PATHOLOGICAL REPORT: SURGICAL PATHOLOGY: [id number] Collected 03/14/2023 FINAL DIAGNOSIS Lymph node, right axillary, biopsy: - Mantle cell lymphoma, predominantly mantle zone pattern. - See comment. Diagnosis Comment Histologic sections show fragments of lymph node with the architecture preserved. The sinuses are patent. There are numerous secondary follicles with preserved polarization of germinal centers and expanded mantles. Immunohistochemical stains have been performed with appropriately staining controls. The mantle cells are positive for CD5, CD20, Cyclin D1, BCL2. Less than 10% of these cells stain for Ki-67. They are negative for CD3, CD10, BCL6. Networks of follicular dendritic cells stain for CD21. In conclusion, the findings are diagnostic of mantle cell lymphoma. The predominant pattern of the neoplasm is mantle zone, a rare variant with a favorable clinical prognosis. An immunohistochemical stain for p53 has been ordered, when available, the results will be included in an addendum. Molecular studies for TP53 mutations have been ordered, the results will be reported in the electronic medical record. Sigifredo Rubin MD Cc: MD Nereida Arciniega MD documented in this encounter [facility] 03-14-2023 Note HNO ID: [id number] Author: Sugar Hanks MD Service: ? Author Type: Physician Type: Progress Notes Filed: 03/16/2023 8:51 AM Note Text: UNIVERSAL PROTOCOL / SAFETY CHECKLIST Procedure to be Performed: Ultrasound-guided right axillary lymph node core biopsy Sign In: A Moment of CARE was completed. Personnel directly involved with the procedure wore the appropriate PPE (Personal Protective Equipment). Patient/Surrogate Stated/Verified: PATIENT VERIFIED(optional for EMERGENT procedures): Patient name, Date of , Relevant allergies, and The intended procedure Time Out Communication: Intended patient and procedure match the source documents. Consent documented and matches the intended procedure. Procedure: After informed consent was obtained, the right axilla was prepped with alcohol and anesthetized with 1% lidocaine without epinephrine. Small incision was made with 11 blade scalpel. Using ultrasound guidance, multiple core biopsies were obtained using the 15-gauge Georgi-Cut needle. These were placed in formalin and sent to pathology. There was minimal bleeding. Steri-Strip applied. She tolerated the procedure well. Sign Out: SIGN OUT (optional for EMERGENT procedures): All specimen containers correctly labeled. Sugar Hanks MD [facility] 03-07-2023 Note HNO ID: [id number] Author: Sugar Hanks MD Service: ? Author Type: Physician Type: Progress Notes Filed: 03/07/2023 4:20 PM Note Text: UNIVERSAL PROTOCOL / SAFETY CHECKLIST Procedure to be Performed: Ultrasound guided fine needle aspiration of right axillary lymph node Sign In: A Moment of CARE was completed. Personnel directly involved with the procedure wore the appropriate PPE (Personal Protective Equipment). Patient/Surrogate Stated/Verified: PATIENT VERIFIED(optional for EMERGENT procedures): Patient name, Date of , Relevant allergies, and The intended procedure Time Out Communication: Intended patient and procedure match the source documents. Consent documented and matches the intended procedure. Procedure: After informed consent was obtained, the right axilla was prepped with ChloraPrep and anesthetized with 1% lidocaine. Using ultrasound guidance a fine-needle aspiration was performed of the right axillary lymphadenopathy. This was done with a 22-gauge needle. Specimen was placed in CytoLyt and sent to pathology. There was no bleeding. Band-Aid applied. She tolerated the procedure well. Sign Out: SIGN OUT (optional for EMERGENT procedures): All specimen containers correctly labeled. Sugar Hanks MD [facility] 03-07-2023 Note HNO ID: [id number] Author: Sugar Hanks MD Service: ? Author Type: Physician Type: Progress Notes Filed: 03/07/2023 4:20 PM Note Text: PROGRESS NOTES PATIENT NAME: Pavan Covington Assessment ASSESSMENT/PLAN: (R59.0) Lymphadenopathy, axillary (primary encounter diagnosis) Pavan presents with increasing right axillary lymphadenopathy. We will proceed with ultrasound-guided FNA for cytology today. I will call her with results. 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 She recently had a follow-up CT scan of her cervical lymph nodes. This showed increasing right axillary lymphadenopathy. She does not palpate a mass. She denies breast changes or nipple discharge. She is up-to-date on her mammograms performed at [facility]. She does have a history of left breast cancer treated 20 years ago. She presents today for surgical evaluation. 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 ZINC ORAL Take by mouth. simvastatin (ZOCOR) 10 mg tablet Take 10 mg by mouth daily at bedtime. Omeprazole 40 mg capsule Take 40 mg by mouth once daily. MULTIVITAMIN ORAL Take by mouth once daily. Bariatric vitamin CALCIUM CITRATE-VITAMIN D3 ORAL Take 1 tablet by mouth once daily. No current facility-administered medications for this visit. FAMILY HISTORY Problem Relation Age of Onset Thyroid Mother Unclear thyroid issue Osteoporosis Mother Breast Cancer Paternal Aunt Stroke Father Thyroid Father Thyroid cancer Social History Tobacco Use Smoking status: Never Smokeless tobacco: Never Vaping Use Vaping Use: Never used Substance Use Topics Alcohol use: No Drug use: No OBJECTIVE PHYSICAL EXAM: There were no vitals taken for this visit. General: Well developed, well-nourished, in no distress HEENT: Normocephalic, atraumatic. Extraocular movements intact. Sclera are nonicteric. Neck: Supple, no masses, no adenopathy, thyroid is normal Heart: Regular rate and rhythm, no murmur Lungs: Clear to auscultation, without wheezes Extremities: Palpable right axillary lymphadenopathy, mobile. No evidence for left axillary adenopathy. Neurologic: Alert, oriented, and appropriate. DATA: Diagnostic tests reviewed for today's visit: CT scan reviewed: IMPRESSION: Similar multiple, nonspecific, mildly prominent cervical lymph nodes compared to prior CT soft tissue neck 07/19/2022. Mildly increasing size of the right axillary nodes. Mild interval increase in the size of the 6 mm nodule in the right upper lung. Sugar Hanks MD [facility] 03-07-2023 History of Present illness Narrative UNIVERSAL PROTOCOL / SAFETY CHECKLIST Procedure to be Performed: Ultrasound guided fine needle aspiration of right axillary lymph node Sign In: A Moment of CARE was completed. Personnel directly involved with the procedure wore the appropriate PPE (Personal Protective Equipment). Patient/Surrogate Stated/Verified: PATIENT VERIFIED(optional for EMERGENT procedures): Patient name, Date of , Relevant allergies, and The intended procedure Time Out Communication: Intended patient and procedure match the source documents. Consent documented and matches the intended procedure. Procedure: After informed consent was obtained, the right axilla was prepped with ChloraPrep and anesthetized with 1% lidocaine. Using ultrasound guidance a fine-needle aspiration was performed of the right axillary lymphadenopathy. This was done with a 22-gauge needle. Specimen was placed in CytoLyt and sent to pathology. There was no bleeding. Band-Aid applied. She tolerated the procedure well. Sign Out: SIGN OUT (optional for EMERGENT procedures): All specimen containers correctly labeled. Sugar Hanks MD PROGRESS NOTES PATIENT NAME: Pavan Covington Assessment ASSESSMENT/PLAN: (R59.0) Lymphadenopathy, axillary (primary encounter diagnosis) Pavan presents with increasing right axillary lymphadenopathy. We will proceed with ultrasound-guided FNA for cytology today. I will call her with results. 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 She recently had a follow-up CT scan of her cervical lymph nodes. This showed increasing right axillary lymphadenopathy. She does not palpate a mass. She denies breast changes or nipple discharge. She is up-to-date on her mammograms performed at [facility]. She does have a history of left breast cancer treated 20 years ago. She presents today for surgical evaluation. 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 ZINC ORAL Take by mouth. simvastatin (ZOCOR) 10 mg tablet Take 10 mg by mouth daily at bedtime. Omeprazole 40 mg capsule Take 40 mg by mouth once daily. MULTIVITAMIN ORAL Take by mouth once daily. Bariatric vitamin CALCIUM CITRATE-VITAMIN D3 ORAL Take 1 tablet by mouth once daily. No current facility-administered medications for this visit. FAMILY HISTORY Problem Relation Age of Onset Thyroid Mother Unclear thyroid issue Osteoporosis Mother Breast Cancer Paternal Aunt Stroke Father Thyroid Father Thyroid cancer Social History Tobacco Use Smoking status: Never Smokeless tobacco: Never Vaping Use Vaping Use: Never used Substance Use Topics Alcohol use: No Drug use: No OBJECTIVE PHYSICAL EXAM: There were no vitals taken for this visit. General: Well developed, well-nourished, in no distress HEENT: Normocephalic, atraumatic. Extraocular movements intact. Sclera are nonicteric. Neck: Supple, no masses, no adenopathy, thyroid is normal Heart: Regular rate and rhythm, no murmur Lungs: Clear to auscultation, without wheezes Extremities: Palpable right axillary lymphadenopathy, mobile. No evidence for left axillary adenopathy. Neurologic: Alert, oriented, and appropriate. DATA: Diagnostic tests reviewed for today's visit: CT scan reviewed: IMPRESSION: Similar multiple, nonspecific, mildly prominent cervical lymph nodes compared to prior CT soft tissue neck 07/19/2022. Mildly increasing size of the right axillary nodes. Mild interval increase in the size of the 6 mm nodule in the right upper lung. Sugar Hanks MD documented in this encounter [facility] 02-21-2023 Miscellaneous Notes Radiology Service Progress Note PATIENT NAME: Pavan Covington DATE OF SERVICE: February 21, 2023 TIME: 8:24 AM PATIENT IDENTITY VERIFICATION COMPLETED USING TWO (2) IDENTIFIERS: Name and Date of confirmed by patient verbally and Name and Date of confirmed by identification band. FALL SCREENING: Has the patient had 2 falls in the last year or 1 fall with injury or currently using an Ambulatory Assistive Device (Walker, Cane, Wheelchair, Crutches, etc.)? No PATIENT GENDER DATA: Female. status: : No status: NO. PATIENT RELEVANT IMPLANT DATA REVIEWED: Not Applicable RADIOLOGY DEPARTMENT: CT; Exam(s) Completed: Neck PERIPHERAL IV DATA: Site assessment: Clean,Dry and Intact, Site disposition Discontinued SIGNED BY: RT Kumar(R) February 21, 2023 8:24 AM documented in this encounter [facility] 02-21-2023 Nurse Note Radiology Service Progress Note DATE OF SERVICE: February 21, 2023 TIME: 8:22 AM PATIENT WEIGHT: 194LBS PATIENT IDENTITY VERIFICATION COMPLETED USING TWO (2) STANDARD IDENTIFIERS: Name and Date of confirmed by patient verbally and Name and Date of confirmed by identification band. FALL SCREENING: Has the patient had 2 falls in the last year or 1 fall with injury or currently using an Ambulatory Assistive Device (Walker, Cane, Wheelchair, Crutches, etc.)? No PATIENT GENDER DATA: Female. status: : No status: NO. ALLERGIES: Reviewed and unchanged CONTRAST ALLERGY: No EXAM: CT -CONTRAST INDUCED NEPHROPATHY RISK FACTORS: Patient age > 60 years CREATININE: Creatinine Date Value Ref Range Status 02/19/2023 0.93 0.58 - 0.96 mg/dL Final 08/02/2022 0.96 0.58 - 0.96 mg/dL Final 07/15/2022 0.85 0.58 - 0.96 mg/dL Final Estimated Glomerular Filtration Rate Date Value Ref Range Status 02/19/2023 65 >=60 mL/min/1.73m Final Comment: Estimated Glomerular Filtration Rate (eGFR) is calculated using the 2020 CKD-EPI creatinine equation. This equation utilizes serum creatinine, sex, and age as parameters. The creatinine assay has traceable calibration to isotope dilution-mass spectrometry. Refer to KDIGO guidelines for clinical interpretation. In patients with unstable renal function, e.g. those with acute kidney injury, the eGFR may not accurately reflect actual GFR. eGFR- Date Value Ref Range Status 01/18/2021 >60 Final P.O.C.T. RESULTS: N/A February 21, 2023 TREATMENT: N/A IV SITE: Ambulatory: A peripheral IV was started in the Right with a Angio cath: 22 gauge. IV SITE APPEARANCE: Clean,Dry and Intact SIGNATURE: Nicole Parker RN PATIENT NAME: Pavan Covington DATE: February 21, 2023 TIME: 8:22 AM documented in this encounter [facility] 11-13-2022 Note HNO ID: [id number] Author: Mary Vo RT(R) Service: Radiology Author Type: Technologist Type: Progress Notes Filed: 11/13/2022 9:42 AM Note Text: Radiology Service Progress Note PATIENT NAME: Pavan Covington DATE OF SERVICE: November 13, 2022 TIME: 9:42 AM PATIENT IDENTITY VERIFICATION COMPLETED USING TWO (2) IDENTIFIERS: Name and Date of confirmed by patient verbally. FALL SCREENING: Has the patient had 2 falls in the last year or 1 fall with injury or currently using an Ambulatory Assistive Device (Walker, Cane, Wheelchair, Crutches, etc.)? No PATIENT GENDER DATA: Female. status: : No status: NO. PATIENT RELEVANT IMPLANT DATA REVIEWED: Not Applicable RADIOLOGY DEPARTMENT: Bone Density PERIPHERAL IV DATA: Not applicable SIGNED BY: EMILIE Jaime)(M) November 13, 2022 9:42 AM [facility] 11-13-2022 History of Present illness Narrative Radiology Service Progress Note PATIENT NAME: Pavan Covington DATE OF SERVICE: November 13, 2022 TIME: 9:42 AM PATIENT IDENTITY VERIFICATION COMPLETED USING TWO (2) IDENTIFIERS: Name and Date of confirmed by patient verbally. FALL SCREENING: Has the patient had 2 falls in the last year or 1 fall with injury or currently using an Ambulatory Assistive Device (Walker, Cane, Wheelchair, Crutches, etc.)? No PATIENT GENDER DATA: Female. status: : No status: NO. PATIENT RELEVANT IMPLANT DATA REVIEWED: Not Applicable RADIOLOGY DEPARTMENT: Bone Density PERIPHERAL IV DATA: Not applicable SIGNED BY: EMILIE Jaime)(M) November 13, 2022 9:42 AM documented in this encounter [facility] 09-12-2022 Note HNO ID: [id number] Author: Selvin Ayala MD Service: ? Author Type: Physician Type: Progress Notes Filed: 09/12/2022 1:25 PM Note Text: . [facility] [address], [address] [place], [place] [address] [facility] - [address], [address] [place] [address] Patient's name: Pavan Covington Patient's date of : 1950 Date of encounter: 09/12/2022 History of present illness: Pavan Covington is a 72 year old female who presents for follow up of an endocrinology issue. Previous history: 05/2006: Microsomal antibodies and Thyroglobulin Antibodies were both very high. 09/2006: Initial consultation with our group, with Dr. Miguel. She was started on branded Synthroid 150 mcg daily. [id number]: Followed by Dr. Miguel for dose titrations. 01/2009: TSH 0.49, free T4 1.09. 08/2009: TSH 0.24, free T4 0.94. 06/2010: TSH 0.54, free T4 1.26, 2.8. 10/2010: TSH 0.76, free T4 1.15, free T3 2.5. 10/2011: TSH 2.08, free T4 1.11, on Synthroid 137 mcg daily. 10/2011: Ultrasound: The entire gland has heterogenous architecture consistent with a chronic autoimmune thyroiditis. Right lobe 64.8 x 18.1 x 14.5 mm, (length, width, depth) Left lobe 47.5 x 16.4 x 16.0 mm, isthmus 5.4 mm. Pseudonodularity noted throughout both lobes L>R. No distinct lesions. Small sub-cm nodes in both left and right level III and IV under sternocleidomastoid muscle. No suspicious nodes in neck (right and left) levels VII, , IV, III, IIa, IIb. 06/2012: TSH 3.83, free T4 0.92 on Synthroid 137 mcg daily. I increased to Synthroid 150 mcg daily. 06/2012: Ultrasound: The entire gland has heterogenous architecture consistent with a chronic autoimmune thyroiditis. Right lobe 54.6 x 17.1 x 15.2 mm, (length, width, depth) left lobe 43.5 x 12.4 x 12.0 mm, isthmus 5.5. No nodules or cysts. No suspicious nodes in neck (right and left) levels VII, , IV, III, IIa, IIb. 02/03/2013: TSH 2.43 (0.34-4.82) at Primary Care Physician office. Faxed to sd. 02/2013: TSH 1.27 (0.358-3.740), free T4 1.12 (0.76-1.46), on Synthroid 150 mcg daily. 02/2014: TSH 2.63 (0.358-3.740 uIU/mL), free T4 0.90 (0.76-1.46 ng/dL), on Synthroid 150 mcg daily. I increased her to Synthroid 175 mcg daily. 08/2014: TSH 0.76 (0.358-3.740 uIU/mL), free T4 1.54 (0.76-1.46 ng/dL), on Synthroid 175 mcg daily. 09/2014: I changed her to generic levothyroxine 175 mcg daily. (Copay issues with branded Synthroid). 08/2015: TSH 0.09 (0.358-3.740 uIU/mL), free T4 1.35 (0.76-1.46 ng/dL), on levothyroxine 175 mcg daily. I lowered her to levothyroxine 150 mcg daily. 08/22/2016: TSH 1.040 (0.400 - 5.500 uU/mL), free T4 1.6 (0.9 - 1.7 ng/dL), on levothyroxine 150 mcg daily. 08/2016: Exam stable. I kept her on levothyroxine 150 mcg daily. 06/13/2017: Surgery, gastric sleeve. 07/17/2017: TSH 0.107 (0.465-4.680) free T4 3.36 (0.78-2.19), free T3 4.36 (2.77-5.27) at her Primary Care Physician office. Her Primary Care Physician asked her to decrease her levothyroxine dosing to 5 days per week (skipping Sat and Sun). These labs were 5 weeks after gastric bypass and 27 pound reduction. 08/28/2017: TSH 5.15 (0.34-4.82 uIU/mL), free T4 0.71 (0.44-1.61 ng/dL), free T3 1.8 (2.2-4.0 pg/mL), while on levothyroxine 150 mcg x 5 pills per week. Mean dose 107.1 mcg daily. 09/04/2017: I changed her to levothyroxine 125 mcg daily. 02/2018: TSH 1.650 (0.358-3.740 uIU/mL), free T4 1.6 (0.76-1.46 ng/dL), free T3 2.3 (2.2-4.0 pg/mL), on levothyroxine 125 mcg daily. The current dose of levothyroxine can be continued. This was a lab check. 06/2018: She reported to me further weight loss. 07/01/2018: TSH 1.030 (0.358-3.740 uIU/mL), free T4 1.6 (0.76-1.46 ng/dL), free T3 2.3 (2.2-4.0 pg/mL), on levothyroxine 125 mcg daily. 05/2019: TSH 2.36 (0.358 - 3.740 uIU/mL), free T4 1.16 (0.76-1.46 ng/dL), on levothyroxine 125 mcg daily. 09/2020: TSH 2.200 (0.270-4.200 uIU/mL), free T4 1.6 (0.9-1.7 ng/dL), while on levothyroxine 125 mcg daily. 08/25/2021: TSH 0.715 (0.270-4.200 uU/mL), while on levothyroxine 125 mcg daily. [Pre-office visit labs] 08/14/2022: TSH 0.360 (0.270-4.200 uU/mL), while on levothyroxine at 125 mcg daily. (done at [facility], with other primary care physician labs) Interval history: The patient now returns for re-evaluation and follow-up. The above history was re-confirmed. When asked how she feels overall, she responded very good She is on levothyroxine, monotherapy. The levothyroxine dose is 125 micrograms, daily. The levothyroxine is administered when she wakes up to start the day, with water. Other meds taken at the time of the levothyroxine include: isolated. Otherwise, the next time any meds are taken is typically at least few hours later. Donavan (more content not included)... [facility] 09-12-2022 Instructions Selvin Ayala MD - 09/12/2022 1:20 PM EDT Check a repeat Thyroid stimulating hormone (TSH) level in mid-November. Do that at [facility]. You don't need to be fasting for that lab test. Levothyroxine / Synthroid use guidelines: Levothyroxine (brand names Synthroid, Levoxyl, Unithroid, or generic levothyroxine) is best taken all by itself, and with an empty stomach. The three best times to take the levothyroxine are: 1. In the morning (ideally the first thing you do when you wake up). See coffee issue, below. 2. At bedtime (if no other medicines or supplements at that time, and few hours after last food.) 3. In the middle of the night, when you wake up to urinate. This may be the ideal time, as it allows multiple hours prior to any other beverage/food or pill(s). Take the levothyroxine with water (and water only, no other type of beverages). Take one hour before any coffee, as coffee has been shown to interfere with the absorption of the levothyroxine. Take (at least) one hour prior to any other medicines. I prefer three hours, especially if the medication or supplement has iron or calcium. Take on empty stomach (one hour prior to food or three (or more) hours after a meal.) If you forget to take a dose, then its is ok to take two pills the next day. documented in this encounter [facility] 09-12-2022 History of Present illness Narrative Images from the original note were not included. . [facility] [address] [place] [address], [address] Endocrin[address], [address] [place] [address] Patient's name: Pavan Covington Patient's date of : 1950 Date of encounter: 09/12/2022 History of present illness: Pavan Covington is a 72 year old female who presents for follow up of an endocrinology issue. Previous history: 05/2006: Microsomal antibodies and Thyroglobulin Antibodies were both very high. 09/2006: Initial consultation with our group, with Dr. Miguel. She was started on branded Synthroid 150 mcg daily. [id number]: Followed by Dr. Miguel for dose titrations. 01/2009: TSH 0.49, free T4 1.09. 08/2009: TSH 0.24, free T4 0.94. 06/2010: TSH 0.54, free T4 1.26, 2.8. 10/2010: TSH 0.76, free T4 1.15, free T3 2.5. 10/2011: TSH 2.08, free T4 1.11, on Synthroid 137 mcg daily. 10/2011: Ultrasound: The entire gland has heterogenous architecture consistent with a chronic autoimmune thyroiditis. Right lobe 64.8 x 18.1 x 14.5 mm, (length, width, depth) Left lobe 47.5 x 16.4 x 16.0 mm, isthmus 5.4 mm. Pseudonodularity noted throughout both lobes L>R. No distinct lesions. Small sub-cm nodes in both left and right level III and IV under sternocleidomastoid muscle. No suspicious nodes in neck (right and left) levels VII, , IV, III, IIa, IIb. 06/2012: TSH 3.83, free T4 0.92 on Synthroid 137 mcg daily. I increased to Synthroid 150 mcg daily. 06/2012: Ultrasound: The entire gland has heterogenous architecture consistent with a chronic autoimmune thyroiditis. Right lobe 54.6 x 17.1 x 15.2 mm, (length, width, depth) left lobe 43.5 x 12.4 x 12.0 mm, isthmus 5.5. No nodules or cysts. No suspicious nodes in neck (right and left) levels VII, , IV, III, IIa, IIb. 02/03/2013: TSH 2.43 (0.34-4.82) at Primary Care Physician office. Faxed to sd. 02/2013: TSH 1.27 (0.358-3.740), free T4 1.12 (0.76-1.46), on Synthroid 150 mcg daily. 02/2014: TSH 2.63 (0.358-3.740 uIU/mL), free T4 0.90 (0.76-1.46 ng/dL), on Synthroid 150 mcg daily. I increased her to Synthroid 175 mcg daily. 08/2014: TSH 0.76 (0.358-3.740 uIU/mL), free T4 1.54 (0.76-1.46 ng/dL), on Synthroid 175 mcg daily. 09/2014: I changed her to generic levothyroxine 175 mcg daily. (Copay issues with branded Synthroid). 08/2015: TSH 0.09 (0.358-3.740 uIU/mL), free T4 1.35 (0.76-1.46 ng/dL), on levothyroxine 175 mcg daily. I lowered her to levothyroxine 150 mcg daily. 08/22/2016: TSH 1.040 (0.400 - 5.500 uU/mL), free T4 1.6 (0.9 - 1.7 ng/dL), on levothyroxine 150 mcg daily. 08/2016: Exam stable. I kept her on levothyroxine 150 mcg daily. 06/13/2017: Surgery, gastric sleeve. 07/17/2017: TSH 0.107 (0.465-4.680) free T4 3.36 (0.78-2.19), free T3 4.36 (2.77-5.27) at her Primary Care Physician office. Her Primary Care Physician asked her to decrease her levothyroxine dosing to 5 days per week (skipping Sat and Sun). These labs were 5 weeks after gastric bypass and 27 pound reduction. 08/28/2017: TSH 5.15 (0.34-4.82 uIU/mL), free T4 0.71 (0.44-1.61 ng/dL), free T3 1.8 (2.2-4.0 pg/mL), while on levothyroxine 150 mcg x 5 pills per week. Mean dose 107.1 mcg daily. 09/04/2017: I changed her to levothyroxine 125 mcg daily. 02/2018: TSH 1.650 (0.358-3.740 uIU/mL), free T4 1.6 (0.76-1.46 ng/dL), free T3 2.3 (2.2-4.0 pg/mL), on levothyroxine 125 mcg daily. The current dose of levothyroxine can be continued. This was a lab check. 06/2018: She reported to me further weight loss. 07/01/2018: TSH 1.030 (0.358-3.740 uIU/mL), free T4 1.6 (0.76-1.46 ng/dL), free T3 2.3 (2.2-4.0 pg/mL), on levothyroxine 125 mcg daily. 05/2019: TSH 2.36 (0.358 - 3.740 uIU/mL), free T4 1.16 (0.76-1.46 ng/dL), on levothyroxine 125 mcg daily. 09/2020: TSH 2.200 (0.270-4.200 uIU/mL), free T4 1.6 (0.9-1.7 ng/dL), while on levothyroxine 125 mcg daily. 08/25/2021: TSH 0.715 (0.270-4.200 uU/mL), while on levothyroxine 125 mcg daily. [Pre-office visit labs] 08/14/2022: TSH 0.360 (0.270-4.200 uU/mL), while on levothyroxine at 125 mcg daily. (done at [facility], with other primary care physician labs) Interval history: The patient now returns for re-evaluation and follow-up. The above history was re-confirmed. When asked how she feels overall, she responded very good She is on levothyroxine, monotherapy. The levothyroxine dose is 125 micrograms, daily. The levothyroxine is administered when she wakes up to start the day, with water. Other meds taken at the time of the levothyroxine include: isolated. Otherwise, the next time any meds are taken is typically at least few hours later. Coffee: none Food: 1+ hour. Compliance with the levothyroxine is reported as good. Calcium is bedtime, around 12 hours post levothyroxine. Multivitamin is evening, around taken around 12 hour post levothyroxine. Proton pump inhibitor: daily. Takes around 1 hours post levothyroxine. Anterior neck compression symptoms: No overt or daily dysphagia of solids, liquids or pills. No overt globus sensation in neck. No new or existing hoarseness. No anterior neck compression / feeling of external pressure. Denies clearing of throat. Denies cough. Biotin use (vitamin B-7) : Use of mjiv-aqq-ednakkp, high dose, biotin supplement: None. Use of Jeeh-Wono-Wlpk vitamins, or similar formulation with high-dose biotin: None. Use of B-complex vitamin preparations with high-dose biotin: None. Use of rxof-aqt-imgdicq leave-in hair conditioners that contain biotin: None. Allergies, medications, medical and surgical history, family history and social history, and problem list reviewed. Preferred pharmacy for the medications I prescribe (or may prescribe) is: [facility] Review of Systems Constitutional: Negative for malaise/fatigue. Respiratory: Negative for shortness of breath. Cardiovascular: Negative for chest pain. Gastrointestinal: Negative for abdominal pain, heartburn, nausea and vomiting. Musculoskeletal: Negative for joint pain. Neurological: Negative for tremors. 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 Lymphedema Overweight Radiation Sleep apnea Thyroid disease PAST SURGICAL HISTORY Procedure Laterality Date BIOPSY/REMOVAL, LYMPH NODE(S) Left 2002 17-removed axillary CHOLECYSTECTOMY HX lap CPD FLOWTRON SLEEVE X-LG (BARIATRIC) (SP) 05/2017 Sleeve D+C LUMPECTOMY/RADIOTHERAPY DIAG MAMM/A10 Left 2002 NASAL SURGERY PROCEDURE ROTATOR CUFF REPAIR Right 2017 TONSILLECTOMY HX Childhood TUBAL LIGATION, FAMILY HISTORY Problem Relation Age of Onset Thyroid Mother Unclear thyroid issue Osteoporosis Mother Breast Cancer Paternal Aunt Stroke Father Thyroid Father Thyroid cancer Social History Tobacco Use Smoking status: Never Smokeless tobacco: Never Vaping Use Vaping Use: Never used Substance Use Topics Alcohol use: No Drug use: No Medications Current Outpatient Medications Medication Sig Dispense Refill ZINC ORAL Take by mouth. levothyroxine (SYNTHROID) 125 mcg tablet Take 1 tablet by mouth once daily. 90 tablet 3 simvastatin (ZOCOR) 10 mg tablet Take 10 mg by mouth daily at bedtime. Omeprazole 40 mg capsule Take 40 mg by mouth once daily. MULTIVITAMIN ORAL Take by mouth once daily. Bariatric vitamin CALCIUM CITRATE-VITAMIN D3 ORAL Take 1 tablet by mouth once daily. No current facility-administered medications for this visit. Physical Examination and Vitals 09/12/22 1251 BP: 109/70 Pulse: 81 Weight: 88 kg (194 lb) Height: 160 cm (5' 3 ) Body Mass Index (BMI): Body mass index is 34.37 kg/m . Last 5 Encounter Wt Readings: Date: Wt: 01/17/2022 83.5 kg (184 lb) 09/20/2021 82.4 kg (181 lb 9.6 oz) 05/10/2021 77.1 kg (170 lb) 01/27/2021 77.1 kg (170 lb) 10/19/2020 79.2 kg (174 lb 11.2 oz) Physical Exam Vitals reviewed. Constitutional: Appearance: She is not toxic-appearing or diaphoretic. HENT: Head: Normocephalic and atraumatic. Eyes: General: No scleral icterus. Neck: Thyroid: No thyroid mass, thyromegaly or thyroid tenderness. Cardiovascular: Rate and Rhythm: Normal rate and regular rhythm. Pulmonary: Effort: Pulmonary effort is normal. No respiratory distress. Breath sounds: Normal breath sounds. Abdominal: Tenderness: There is no right CVA tenderness or left CVA tenderness. Lymphadenopathy: Head: Right side of head: No submandibular, tonsillar or preauricular adenopathy. Left side of head: No submandibular, tonsillar or preauricular adenopathy. Cervical: No cervical adenopathy. Skin: General: Skin is warm. Neurological: Mental Status: She is alert and oriented to person, place, and time. Motor: No tremor (No tremor of outstretched hands). Psychiatric: Mood and Affect: Mood and affect normal. Judgment: Judgment normal. Assessment and Plans: 1. 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 Age over 70. Discussed TSH targets for age >70. I reduced her to levothyroxine 112 mcg daily. An electronic prescription was sent to the mail-order pharmacy. She will recheck TSH in mid Nov, at [facility]. Order in [facility] for ~ 12/13/22. - levothyroxine (SYNTHROID) 112 mcg tablet; Take 1 tablet by mouth once daily. Dispense: 90 tablet; Refill: 3 - TSH BLD; Future 2. Encounter for medication management Levothyroxine 3. Long-term current use of levothyroxine Levothyroxine. I reviewed the proper use of levothyroxine products. The patient is doing proper administration of levothyroxine. Note, the proton pump inhibitor is a bit close to the levothyroxine, but seems to be absorbing fine. 4. Chronic lymphocytic thyroiditis Treat with levothyroxine 5. History of gastric bypass Peak weight 290 pounds Now around 190 pounds. Selvin Ayala MD [facility] - [place] -------- documented in this encounter [facility] 08-28-2022 Miscellaneous Notes Pt called on VM also and I gave her MDM's [employer] message. Kayla Ruth LPN documented in this encounter [facility] 08-27-2022 Note HNO ID: [id number] Author: Selvin Ayala MD Service: ? Author Type: Physician Type: Progress Notes Filed: 08/27/2022 9:16 AM Note Text: Note: The following is an abstracted note of the either a previous or a new History of Present Illness. This is in prep for an up-coming appointment or a summary update of a disease state. This is not a dqjh-yo-qedh encounter. Previous history as follows: Previous history: 05/2006: Microsomal antibodies and Thyroglobulin Antibodies were both very high. 09/2006: Initial consultation with our group, with Dr. Miguel. She was started on branded Synthroid 150 mcg daily. [id number]: Followed by Dr. Miguel for dose titrations. 01/2009: TSH 0.49, free T4 1.09. 08/2009: TSH 0.24, free T4 0.94. 06/2010: TSH 0.54, free T4 1.26, 2.8. 10/2010: TSH 0.76, free T4 1.15, free T3 2.5. 10/2011: TSH 2.08, free T4 1.11, on Synthroid 137 mcg daily. 10/2011: Ultrasound: The entire gland has heterogenous architecture consistent with a chronic autoimmune thyroiditis. Right lobe 64.8 x 18.1 x 14.5 mm, (length, width, depth) Left lobe 47.5 x 16.4 x 16.0 mm, isthmus 5.4 mm. Pseudonodularity noted throughout both lobes L>R. No distinct lesions. Small sub-cm nodes in both left and right level III and IV under sternocleidomastoid muscle. No suspicious nodes in neck (right and left) levels VII, , IV, III, IIa, IIb. 06/2012: TSH 3.83, free T4 0.92 on Synthroid 137 mcg daily. I increased to Synthroid 150 mcg daily. 06/2012: Ultrasound: The entire gland has heterogenous architecture consistent with a chronic autoimmune thyroiditis. Right lobe 54.6 x 17.1 x 15.2 mm, (length, width, depth) left lobe 43.5 x 12.4 x 12.0 mm, isthmus 5.5. No nodules or cysts. No suspicious nodes in neck (right and left) levels VII, , IV, III, IIa, IIb. 02/03/2013: TSH 2.43 (0.34-4.82) at Primary Care Physician office. Faxed to sd. 02/2013: TSH 1.27 (0.358-3.740), free T4 1.12 (0.76-1.46), on Synthroid 150 mcg daily. 02/2014: TSH 2.63 (0.358-3.740 uIU/mL), free T4 0.90 (0.76-1.46 ng/dL), on Synthroid 150 mcg daily. I increased her to Synthroid 175 mcg daily. 08/2014: TSH 0.76 (0.358-3.740 uIU/mL), free T4 1.54 (0.76-1.46 ng/dL), on Synthroid 175 mcg daily. 09/2014: I changed her to generic levothyroxine 175 mcg daily. (Copay issues with branded Synthroid). 08/2015: TSH 0.09 (0.358-3.740 uIU/mL), free T4 1.35 (0.76-1.46 ng/dL), on levothyroxine 175 mcg daily. I lowered her to levothyroxine 150 mcg daily. 08/22/2016: TSH 1.040 (0.400 - 5.500 uU/mL), free T4 1.6 (0.9 - 1.7 ng/dL), on levothyroxine 150 mcg daily. 08/2016: Exam stable. I kept her on levothyroxine 150 mcg daily. 06/13/2017: Surgery, gastric sleeve. 07/17/2017: TSH 0.107 (0.465-4.680) free T4 3.36 (0.78-2.19), free T3 4.36 (2.77-5.27) at her Primary Care Physician office. Her Primary Care Physician asked her to decrease her levothyroxine dosing to 5 days per week (skipping Sat and Sun). These labs were 5 weeks after gastric bypass and 27 pound reduction. 08/28/2017: TSH 5.15 (0.34-4.82 uIU/mL), free T4 0.71 (0.44-1.61 ng/dL), free T3 1.8 (2.2-4.0 pg/mL), while on levothyroxine 150 mcg x 5 pills per week. Mean dose 107.1 mcg daily. 09/04/2017: I changed her to levothyroxine 125 mcg daily. 02/2018: TSH 1.650 (0.358-3.740 uIU/mL), free T4 1.6 (0.76-1.46 ng/dL), free T3 2.3 (2.2-4.0 pg/mL), on levothyroxine 125 mcg daily. The current dose of levothyroxine can be continued. This was a lab check. 06/2018: She reported to me further weight loss. 07/01/2018: TSH 1.030 (0.358-3.740 uIU/mL), free T4 1.6 (0.76-1.46 ng/dL), free T3 2.3 (2.2-4.0 pg/mL), on levothyroxine 125 mcg daily. 05/2019: TSH 2.36 (0.358 - 3.740 uIU/mL), free T4 1.16 (0.76-1.46 ng/dL), on levothyroxine 125 mcg daily. 09/2020: TSH 2.200 (0.270-4.200 uIU/mL), free T4 1.6 (0.9-1.7 ng/dL), while on levothyroxine 125 mcg daily. 08/25/2021: TSH 0.715 (0.270-4.200 uU/mL), while on levothyroxine 125 mcg daily. [Pre-office visit labs] 08/14/2022: TSH 0.360 (0.270-4.200 uU/mL), while on levothyroxine at 125 mcg daily. (done at [facility], with other primary care physician labs) Calcium is around 12 hours post levothyroxine. Multivitamin is taken around 12 hour post levothyroxine. Proton pump inhibitor: daily. Takes around 2 hours post levothyroxine. [facility] 08-27-2022 History of Present illness Narrative Note: The following is an abstracted note of the either a previous or a new History of Present Illness. This is in prep for an up-coming appointment or a summary update of a disease state. This is not a ajtp-hj-fpgp encounter. Previous history as follows: Previous history: 05/2006: Microsomal antibodies and Thyroglobulin Antibodies were both very high. 09/2006: Initial consultation with our group, with Dr. Miguel. She was started on branded Synthroid 150 mcg daily. [id number]: Followed by Dr. Miguel for dose titrations. 01/2009: TSH 0.49, free T4 1.09. 08/2009: TSH 0.24, free T4 0.94. 06/2010: TSH 0.54, free T4 1.26, 2.8. 10/2010: TSH 0.76, free T4 1.15, free T3 2.5. 10/2011: TSH 2.08, free T4 1.11, on Synthroid 137 mcg daily. 10/2011: Ultrasound: The entire gland has heterogenous architecture consistent with a chronic autoimmune thyroiditis. Right lobe 64.8 x 18.1 x 14.5 mm, (length, width, depth) Left lobe 47.5 x 16.4 x 16.0 mm, isthmus 5.4 mm. Pseudonodularity noted throughout both lobes L>R. No distinct lesions. Small sub-cm nodes in both left and right level III and IV under sternocleidomastoid muscle. No suspicious nodes in neck (right and left) levels VII, , IV, III, IIa, IIb. 06/2012: TSH 3.83, free T4 0.92 on Synthroid 137 mcg daily. I increased to Synthroid 150 mcg daily. 06/2012: Ultrasound: The entire gland has heterogenous architecture consistent with a chronic autoimmune thyroiditis. Right lobe 54.6 x 17.1 x 15.2 mm, (length, width, depth) left lobe 43.5 x 12.4 x 12.0 mm, isthmus 5.5. No nodules or cysts. No suspicious nodes in neck (right and left) levels VII, , IV, III, IIa, IIb. 02/03/2013: TSH 2.43 (0.34-4.82) at Primary Care Physician office. Faxed to sd. 02/2013: TSH 1.27 (0.358-3.740), free T4 1.12 (0.76-1.46), on Synthroid 150 mcg daily. 02/2014: TSH 2.63 (0.358-3.740 uIU/mL), free T4 0.90 (0.76-1.46 ng/dL), on Synthroid 150 mcg daily. I increased her to Synthroid 175 mcg daily. 08/2014: TSH 0.76 (0.358-3.740 uIU/mL), free T4 1.54 (0.76-1.46 ng/dL), on Synthroid 175 mcg daily. 09/2014: I changed her to generic levothyroxine 175 mcg daily. (Copay issues with branded Synthroid). 08/2015: TSH 0.09 (0.358-3.740 uIU/mL), free T4 1.35 (0.76-1.46 ng/dL), on levothyroxine 175 mcg daily. I lowered her to levothyroxine 150 mcg daily. 08/22/2016: TSH 1.040 (0.400 - 5.500 uU/mL), free T4 1.6 (0.9 - 1.7 ng/dL), on levothyroxine 150 mcg daily. 08/2016: Exam stable. I kept her on levothyroxine 150 mcg daily. 06/13/2017: Surgery, gastric sleeve. 07/17/2017: TSH 0.107 (0.465-4.680) free T4 3.36 (0.78-2.19), free T3 4.36 (2.77-5.27) at her Primary Care Physician office. Her Primary Care Physician asked her to decrease her levothyroxine dosing to 5 days per week (skipping Sat and Sun). These labs were 5 weeks after gastric bypass and 27 pound reduction. 08/28/2017: TSH 5.15 (0.34-4.82 uIU/mL), free T4 0.71 (0.44-1.61 ng/dL), free T3 1.8 (2.2-4.0 pg/mL), while on levothyroxine 150 mcg x 5 pills per week. Mean dose 107.1 mcg daily. 09/04/2017: I changed her to levothyroxine 125 mcg daily. 02/2018: TSH 1.650 (0.358-3.740 uIU/mL), free T4 1.6 (0.76-1.46 ng/dL), free T3 2.3 (2.2-4.0 pg/mL), on levothyroxine 125 mcg daily. The current dose of levothyroxine can be continued. This was a lab check. 06/2018: She reported to me further weight loss. 07/01/2018: TSH 1.030 (0.358-3.740 uIU/mL), free T4 1.6 (0.76-1.46 ng/dL), free T3 2.3 (2.2-4.0 pg/mL), on levothyroxine 125 mcg daily. 05/2019: TSH 2.36 (0.358 - 3.740 uIU/mL), free T4 1.16 (0.76-1.46 ng/dL), on levothyroxine 125 mcg daily. 09/2020: TSH 2.200 (0.270-4.200 uIU/mL), free T4 1.6 (0.9-1.7 ng/dL), while on levothyroxine 125 mcg daily. 08/25/2021: TSH 0.715 (0.270-4.200 uU/mL), while on levothyroxine 125 mcg daily. [Pre-office visit labs] 08/14/2022: TSH 0.360 (0.270-4.200 uU/mL), while on levothyroxine at 125 mcg daily. (done at [facility], with other primary care physician labs) Calcium is around 12 hours post levothyroxine. Multivitamin is taken around 12 hour post levothyroxine. Proton pump inhibitor: daily. Takes around 2 hours post levothyroxine. documented in this encounter [facility] 07-19-2022 Note HNO ID: [id number] Author: RAFFY Nath Service: Radiology Author Type: Technologist Type: Progress Notes Filed: 07/19/2022 2:57 PM Note Text: Radiology Service Progress Note PATIENT NAME: Pavan Covington DATE OF SERVICE: July 19, 2022 TIME: 2:44 PM PATIENT IDENTITY VERIFICATION COMPLETED USING TWO (2) IDENTIFIERS: Name and Date of confirmed by patient verbally and Name and Date of confirmed by identification band. FALL SCREENING: Has the patient had 2 falls in the last year or 1 fall with injury or currently using an Ambulatory Assistive Device (Walker, Cane, Wheelchair, Crutches, etc.)? No PATIENT GENDER DATA: Female. status: : No status: NO. PATIENT RELEVANT IMPLANT DATA REVIEWED: Yes RADIOLOGY DEPARTMENT: CT; Exam(s) Completed: Neck PERIPHERAL IV DATA: Site assessment: Clean,Dry and Intact, Site disposition Discontinued SIGNED BY: RAFFY Nath July 19, 2022 2:44 PM [facility] 07-19-2022 Note HNO ID: [id number] Author: Eda Harris RN Service: Nursing Author Type: Registered Nurse Type: Progress Notes Filed: 07/19/2022 2:52 PM Note Text: Radiology Service Progress Note DATE OF SERVICE: July 19, 2022 TIME: 2:45 PM PATIENT WEIGHT: LBS PATIENT IDENTITY VERIFICATION COMPLETED USING TWO (2) STANDARD IDENTIFIERS: Name and Date of confirmed by patient verbally. FALL SCREENING: Has the patient had 2 falls in the last year or 1 fall with injury or currently using an Ambulatory Assistive Device (Walker, Cane, Wheelchair, Crutches, etc.)? No PATIENT GENDER DATA: Female. status: status: NO. ALLERGIES: Reviewed and unchanged CONTRAST ALLERGY: No EXAM: CT -CONTRAST INDUCED NEPHROPATHY RISK FACTORS: Patient age > 60 years CREATININE: Creatinine Date Value Ref Range Status 07/15/2022 0.85 0.58 - 0.96 mg/dL Final 01/11/2022 0.80 0.58 - 0.96 mg/dL Final 08/25/2021 0.97 (H) 0.58 - 0.96 mg/dL Final Estimated Glomerular Filtration Rate Date Value Ref Range Status 07/15/2022 73 >=60 mL/min/1.73m? Final Comment: Estimated Glomerular Filtration Rate (eGFR) is calculated using the 2020 CKD-EPI creatinine equation. This equation utilizes serum creatinine, sex, and age as parameters. The creatinine assay has traceable calibration to isotope dilution-mass spectrometry. Refer to KDIGO guidelines for clinical interpretation. In patients with unstable renal function, e.g. those with acute kidney injury, the eGFR may not accurately reflect actual GFR. eGFR- Date Value Ref Range Status 01/18/2021 >60 Final P.O.C.T. RESULTS: POC done: Yes, See Lab Tab July 19, 2022 TREATMENT: N/A IV SITE: Ambulatory: A peripheral IV was started in the Right antecubital site with a Angio cath: 20 gauge. IV SITE APPEARANCE: Clean,Dry and Intact SIGNATURE: Eda Harris RN PATIENT NAME: Pavan Covington DATE: July 19, 2022 TIME: 2:45 PM [facility] 07-19-2022 History of Present illness Narrative Radiology Service Progress Note DATE OF SERVICE: July 19, 2022 TIME: 2:45 PM PATIENT WEIGHT: LBS PATIENT IDENTITY VERIFICATION COMPLETED USING TWO (2) STANDARD IDENTIFIERS: Name and Date of confirmed by patient verbally. FALL SCREENING: Has the patient had 2 falls in the last year or 1 fall with injury or currently using an Ambulatory Assistive Device (Walker, Cane, Wheelchair, Crutches, etc.)? No PATIENT GENDER DATA: Female. status: status: NO. ALLERGIES: Reviewed and unchanged CONTRAST ALLERGY: No EXAM: CT -CONTRAST INDUCED NEPHROPATHY RISK FACTORS: Patient age > 60 years CREATININE: Creatinine Date Value Ref Range Status 07/15/2022 0.85 0.58 - 0.96 mg/dL Final 01/11/2022 0.80 0.58 - 0.96 mg/dL Final 08/25/2021 0.97 (H) 0.58 - 0.96 mg/dL Final Estimated Glomerular Filtration Rate Date Value Ref Range Status 07/15/2022 73 >=60 mL/min/1.73m Final Comment: Estimated Glomerular Filtration Rate (eGFR) is calculated using the 2020 CKD-EPI creatinine equation. This equation utilizes serum creatinine, sex, and age as parameters. The creatinine assay has traceable calibration to isotope dilution-mass spectrometry. Refer to KDIGO guidelines for clinical interpretation. In patients with unstable renal function, e.g. those with acute kidney injury, the eGFR may not accurately reflect actual GFR. eGFR- Date Value Ref Range Status 01/18/2021 >60 Final P.O.C.T. RESULTS: POC done: Yes, See Lab Tab July 19, 2022 TREATMENT: N/A IV SITE: Ambulatory: A peripheral IV was started in the Right antecubital site with a Angio cath: 20 gauge. IV SITE APPEARANCE: Clean,Dry and Intact SIGNATURE: Eda Harris RN PATIENT NAME: Pavan Covington DATE: July 19, 2022 TIME: 2:45 PM Radiology Service Progress Note PATIENT NAME: Pavan Covington DATE OF SERVICE: July 19, 2022 TIME: 2:44 PM PATIENT IDENTITY VERIFICATION COMPLETED USING TWO (2) IDENTIFIERS: Name and Date of confirmed by patient verbally and Name and Date of confirmed by identification band. FALL SCREENING: Has the patient had 2 falls in the last year or 1 fall with injury or currently using an Ambulatory Assistive Device (Walker, Cane, Wheelchair, Crutches, etc.)? No PATIENT GENDER DATA: Female. status: : No status: NO. PATIENT RELEVANT IMPLANT DATA REVIEWED: Yes RADIOLOGY DEPARTMENT: CT; Exam(s) Completed: Neck PERIPHERAL IV DATA: Site assessment: Clean,Dry and Intact, Site disposition Discontinued SIGNED BY: RAFFY Nath July 19, 2022 2:44 PM documented in this encounter [facility] 01-17-2022 History of Present illness Narrative Consult Note PATIENT NAME: Pavan Covington Consultation requested by Dr. Nereida Green for an opinion regarding lymphadenopathy. My final recommendations will be communicated back to the requesting physician by way of shared Medical record or letter to requesting physician via [place] mail. Assessment ASSESSMENT/PLAN: (R59.0) Lymphadenopathy, cervical (primary encounter diagnosis) Sarah presents with cervical lymphadenopathy. I have reviewed her films and performed a physical exam. I do not identify a distinct concerning lymph node to biopsy. I will review her CT scan with the radiologist and call her with the plan. Most likely this can be followed. She is comfortable with this plan. No orders found for this visit on 01/17/22. SUBJECTIVE CHIEF COMPLAINT: Patient presents with: Consult: Review CT scan, biopsy of lymph node INTERVAL HISTORY OF PRESENT ILLNESS: Sarah is a 71-year-old female with a history of breast cancer who was doing well until April 2021 when she fell. She hit her head on the car. She was seen in the ER. CT scan of the head showed mildly prominent lymph nodes. A 6-month follow-up was recommended. She does not palpate a mass. She denies B symptoms including fevers, chills, or weight loss. She is very concerned about lymphadenopathy. Her of metastatic melanoma diagnosed within the lymph nodes. She presents today for surgical evaluation. 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 levothyroxine (SYNTHROID) 125 mcg tablet Take 1 tablet by mouth once daily. simvastatin (ZOCOR) 10 mg tablet Take 10 mg by mouth daily at bedtime. Omeprazole 40 mg capsule Take 40 mg by mouth once daily. MULTIVITAMIN ORAL Take by mouth once daily. Bariatric vitamin CALCIUM CITRATE-VITAMIN D3 ORAL Take 1 tablet by mouth once daily. No current facility-administered medications for this visit. FAMILY HISTORY Problem Relation Age of Onset Thyroid Mother Unclear thyroid issue Osteoporosis Mother Breast Cancer Paternal Aunt Stroke Father Thyroid Father Thyroid cancer Social History Tobacco Use Smoking status: Never Smokeless tobacco: Never Vaping Use Vaping Use: Never used Substance Use Topics Alcohol use: No Drug use: No Reviewed and agreed with Review of Systems completed by the clinical staff. OBJECTIVE PHYSICAL EXAM: BP 130/82 Pulse 70 Ht 5' 3 (1.60m) Wt 184 lb (83.5kg) BMI 32.60 kg/(m^2). General: Well developed, well-nourished, in no distress HEENT: Normocephalic, atraumatic. Extraocular movements intact. Sclera are nonicteric. Neck: Supple, no masses, no adenopathy, thyroid is normal Heart: Regular rate and rhythm, no murmur Lungs: Clear to auscultation, without wheezes Extremities: No edema Neurologic: Alert, oriented, and appropriate. DATA: Diagnostic tests reviewed for today's visit: CT scans reviewed: Impression: Multiple prominent nonspecific lymph nodes, mildly increased in size since prior CT imaging from 2006. Findings could reflect reactive change however follow-up recommended to document resolution and exclude underlying neoplasm. Sugar Hanks MD GENERAL:No weight loss, No malaise, No fevers HEENT:Negative for frequent or significant headaches, No changes in hearing or vision, no nose bleeds or other nasal problems CARDIOVASCULAR: Negative for chest pain, Negative for leg swelling, Negative for palpitaions RESPIRATORY:Negative for cough, wheezing or shortness of breath . GASTROINTESTINAL: Negative for abdominal discomfort, Negative for blood in stools, Negative for black stools, and Negative for change in bowel habits GENITOURINARY: No history of dysuria, frequency or incontinence. ENDOCRINE: None FARM LABORER:Denies any concerns FARM LABORER: N/A MUSCULOSKELETAL: Negative for joint pain or swelling, back pain or muscle pain. NEUROLOGIC:Negative for focal numbness or weakness, headaches and dizziness or syncope. HEMATOLOGIC/LYMPHATIC/IMMUNOLOGIC: Negative for prolonged bleeding, bruising easily or swollen nodes. Stacey Newell CMA documented in this encounter [facility] 01-16-2022 Miscellaneous Notes Radiology Service Progress Note DATE OF SERVICE: January 16, 2022 TIME: 1:10 PM PATIENT IDENTITY VERIFICATION COMPLETED USING TWO (2) STANDARD IDENTIFIERS: Name and Date of confirmed by patient verbally and Name and Date of confirmed by identification band. FALL SCREENING: Has the patient had 2 falls in the last year or 1 fall with injury or currently using an Ambulatory Assistive Device (Walker, Cane, Wheelchair, Crutches, etc.)? No PATIENT GENDER DATA: Female. status: : No status: NO. PATIENT RELEVANT IMPLANT DATA REVIEWED: Not Applicable ALLERGIES: Reviewed and unchanged CONTRAST ALLERGY: NO. EXAM: CT -CONTRAST INDUCED NEPHROPATHY RISK FACTORS: Patient age > 60 years CREATININE: Creatinine Date Value Ref Range Status 01/11/2022 0.80 0.58 - 0.96 mg/dL Final 08/25/2021 0.97 (H) 0.58 - 0.96 mg/dL Final 01/18/2021 0.85 0.58 - 0.96 mg/dL Final Estimated Glomerular Filtration Rate Date Value Ref Range Status 01/11/2022 79 >=60 mL/min/1.73m Final Comment: Estimated Glomerular Filtration Rate (eGFR) is calculated using the 2020 CKD-EPI creatinine equation. This equation utilizes serum creatinine, sex, and age as parameters. The creatinine assay has traceable calibration to isotope dilution-mass spectrometry. Refer to KDIGO guidelines for clinical interpretation. In patients with unstable renal function, e.g. those with acute kidney injury, the eGFR may not accurately reflect actual GFR. eGFR- Date Value Ref Range Status 01/18/2021 >60 Final P.O.C.T. RESULTS: N/A January 16, 2022 TREATMENT: N/A PERIPHERAL IV DATA: Ambulatory: A peripheral IV was started in the Right antecubital site with a Angio cath: 20 gauge. RADIOLOGY DEPARTMENT: CT; Exam(s) Completed: Neck SIGNATURE: RAFFY Pugh PATIENT NAME: Pavan Covington DATE: January 16, 2022 TIME: 1:10 PM documented in this encounter [facility] 09-20-2021 Instructions Selvin Ayala MD - 09/20/2021 1:16 PM EDT Levothyroxine / Synthroid use guidelines: Levothyroxine (brand names Synthroid, Levoxyl, Unithroid, or generic levothyroxine) is best taken all by itself, and with an empty stomach. The three best times to take the levothyroxine are: 1. In the morning (ideally the first thing you do when you wake up). See coffee issue, below. 2. At bedtime (if no other medicines or supplements at that time, and few hours after last food.) 3. In the middle of the night, when you wake up to urinate. This may be the ideal time, as it allows multiple hours prior to any other beverage/food or pill(s). Take the levothyroxine with water (and water only, no other type of beverages). Take one hour before any coffee, as coffee has been shown to interfere with the absorption of the levothyroxine. Take (at least) one hour prior to any other medicines. I prefer three hours, especially if the medication or supplement has iron or calcium. Take on empty stomach (one hour prior to food or three (or more) hours after a meal.) If you forget to take a dose, then its is ok to take two pills the next day. documented in this encounter [facility] 09-20-2021 History of Present illness Narrative Images from the original note were not included. . [facility] - [place] [address], [address] [place], [place] [address] [facility] - [place] [id number], [address] [place], [place] [address] Patient's name: Pavan Covington Patient's date of : 1950 Date of encounter: 09/20/2021 History of present illness: Pavan Covington is a 71 year old female who presents for follow up of an endocrinology issue. Previous history: 05/2006: Microsomal antibodies and Thyroglobulin Antibodies were both very high. 09/2006: Initial consultation with our group, with Dr. Miguel. She was started on branded Synthroid 150 mcg daily. [id number]: Followed by Dr. Miguel for dose titrations. 01/2009: TSH 0.49, free T4 1.09. 08/2009: TSH 0.24, free T4 0.94. 06/2010: TSH 0.54, free T4 1.26, 2.8. 10/2010: TSH 0.76, free T4 1.15, free T3 2.5. 10/2011: TSH 2.08, free T4 1.11, on Synthroid 137 mcg daily. 10/2011: Ultrasound: The entire gland has heterogenous architecture consistent with a chronic autoimmune thyroiditis. Right lobe 64.8 x 18.1 x 14.5 mm, (length, width, depth) Left lobe 47.5 x 16.4 x 16.0 mm, isthmus 5.4 mm. Pseudonodularity noted throughout both lobes L>R. No distinct lesions. Small sub-cm nodes in both left and right level III and IV under sternocleidomastoid muscle. No suspicious nodes in neck (right and left) levels VII, , IV, III, IIa, IIb. 06/2012: TSH 3.83, free T4 0.92 on Synthroid 137 mcg daily. I increased to Synthroid 150 mcg daily. 06/2012: Ultrasound: The entire gland has heterogenous architecture consistent with a chronic autoimmune thyroiditis. Right lobe 54.6 x 17.1 x 15.2 mm, (length, width, depth) left lobe 43.5 x 12.4 x 12.0 mm, isthmus 5.5. No nodules or cysts. No suspicious nodes in neck (right and left) levels VII, , IV, III, IIa, IIb. 02/03/2013: TSH 2.43 (0.34-4.82) at Primary Care Physician office. Faxed to sd. 02/2013: TSH 1.27 (0.358-3.740), free T4 1.12 (0.76-1.46), on Synthroid 150 mcg daily. 02/2014: TSH 2.63 (0.358-3.740 uIU/mL), free T4 0.90 (0.76-1.46 ng/dL), on Synthroid 150 mcg daily. I increased her to Synthroid 175 mcg daily. 08/2014: TSH 0.76 (0.358-3.740 uIU/mL), free T4 1.54 (0.76-1.46 ng/dL), on Synthroid 175 mcg daily. 09/2014: I changed her to generic levothyroxine 175 mcg daily. (Copay issues with branded Synthroid). 08/2015: TSH 0.09 (0.358-3.740 uIU/mL), free T4 1.35 (0.76-1.46 ng/dL), on levothyroxine 175 mcg daily. I lowered her to levothyroxine 150 mcg daily. 08/22/2016: TSH 1.040 (0.400 - 5.500 uU/mL), free T4 1.6 (0.9 - 1.7 ng/dL), on levothyroxine 150 mcg daily. 08/2016: Exam stable. I kept her on levothyroxine 150 mcg daily. 06/13/2017: Surgery, gastric sleeve. 07/17/2017: TSH 0.107 (0.465-4.680) free T4 3.36 (0.78-2.19), free T3 4.36 (2.77-5.27) at her Primary Care Physician office. Her Primary Care Physician asked her to decrease her levothyroxine dosing to 5 days per week (skipping Sat and Sun). These labs were 5 weeks after gastric bypass and 27 pound reduction. 08/28/2017: TSH 5.15 (0.34-4.82 uIU/mL), free T4 0.71 (0.44-1.61 ng/dL), free T3 1.8 (2.2-4.0 pg/mL), while on levothyroxine 150 mcg x 5 pills per week. Mean dose 107.1 mcg daily. 09/04/2017: I changed her to levothyroxine 125 mcg daily. 02/2018: TSH 1.650 (0.358-3.740 uIU/mL), free T4 1.6 (0.76-1.46 ng/dL), free T3 2.3 (2.2-4.0 pg/mL), on levothyroxine 125 mcg daily. The current dose of levothyroxine can be continued. This was a lab check. 06/2018: She reported to me further weight loss. 07/01/2018: TSH 1.030 (0.358-3.740 uIU/mL), free T4 1.6 (0.76-1.46 ng/dL), free T3 2.3 (2.2-4.0 pg/mL), on levothyroxine 125 mcg daily. 05/2019: TSH 2.36 (0.358 - 3.740 uIU/mL), free T4 1.16 (0.76-1.46 ng/dL), on levothyroxine 125 mcg daily. 09/2020: TSH 2.200 (0.270-4.200 uIU/mL), free T4 1.6 (0.9-1.7 ng/dL), while on levothyroxine 125 mcg daily. 08/25/2021: TSH 0.715 (0.270-4.200 uU/mL), while on levothyroxine 125 mcg daily. Interval history: The patient now returns for re-evaluation and follow-up. The above history was re-confirmed. When asked how she feels overall, she responded ok She is on levothyroxine at 125 micrograms daily. Recent TSH lab as above. The levothyroxine is administered when she wakes up to start the day, with water. Other meds taken at the time of the levothyroxine include: none. Otherwise, the next time any meds are taken is typically at least few hours later. Coffee: none. Compliance with the levothyroxine is reported as good. I re-confirmed the history below, in italic. Calcium is around 12 hours post levothyroxine. Multivitamin is taken around 12 hour post levothyroxine. Proton pump inhibitor: daily. Takes around 2 hours post levothyroxine. Anterior neck compression symptoms: No overt or daily dysphagia of solids, liquids or pills. No overt globus sensation in neck. No new or existing hoarseness. No anterior neck compression / feeling of external pressure. Denies clearing of throat. Denies cough. Biotin use (vitamin B-7) : Use of [id number], high dose, biotin supplement: None. Use of Cxpx-[id number]-Qpjl vitamins, or similar formulation with high-dose biotin: None. Use of B-complex vitamin preparations with high-dose biotin: None. Use of [id number] leave-in hair conditioners that contain biotin: None. Allergies, medications, medical and surgical history, family history and social history, and problem list reviewed. Preferred pharmacy for the medications I prescribe (or may prescribe) is: [facility]. Review of Systems Review of Systems Constitutional: Negative for malaise/fatigue. Respiratory: Negative for shortness of breath. Cardiovascular: Negative for chest pain. Musculoskeletal: Negative for joint pain. Neurological: Negative for tremors. 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 Lymphedema Overweight Radiation Sleep apnea Thyroid disease PAST SURGICAL HISTORY Procedure Laterality Date BIOPSY/REMOVAL, LYMPH NODE(S) Left 2002 17-removed axillary CHOLECYSTECTOMY HX lap CPD FLOWTRON SLEEVE X-LG (BARIATRIC) (SP) 05/2017 Sleeve D+C LUMPECTOMY/RADIOTHERAPY DIAG MAMM/A10 Left 2002 NASAL SURGERY PROCEDURE ROTATOR CUFF REPAIR Right 2017 TONSILLECTOMY HX Childhood TUBAL LIGATION, FAMILY HISTORY Problem Relation Age of Onset Thyroid Mother Unclear thyroid issue Osteoporosis Mother Breast Cancer Paternal Aunt Stroke Father Thyroid Father Thyroid cancer Social History Tobacco Use Smoking status: Never Smoker Smokeless tobacco: Never Used Vaping Use Vaping Use: Never used Substance Use Topics Alcohol use: No Drug use: No Medications Current Outpatient Medications Medication Sig Dispense Refill ZINC ORAL Take by mouth. simvastatin (ZOCOR) 10 mg tablet Take 10 mg by mouth daily at bedtime. levothyroxine (SYNTHROID) 125 mcg tablet Take 1 tablet by mouth once daily. 90 tablet 3 Omeprazole 40 mg capsule Take 40 mg by mouth once daily. MULTIVITAMIN ORAL Take by mouth once daily. Bariatric vitamin CALCIUM CITRATE-VITAMIN D3 ORAL Take 1 tablet by mouth once daily. No current facility-administered medications for this visit. Physical Examination and Vitals BP 134/71 Pulse 74 Ht 5' 3 (1.60m) Wt 181 lb 9.6 oz (82.4kg) BMI 32.18 kg/(m^2). Last 5 Encounter Wt Readings: Date: Wt: 05/10/2021 77.1 kg (170 lb) 01/27/2021 77.1 kg (170 lb) 10/19/2020 79.2 kg (174 lb 11.2 oz) 11/18/2019 80.7 kg (177 lb 14.4 oz) 10/12/2018 72.6 kg (160 lb) Physical Exam Vitals reviewed. Constitutional: Appearance: She is not toxic-appearing or diaphoretic. HENT: Head: Normocephalic and atraumatic. Eyes: General: No scleral icterus. Neck: Thyroid: No thyroid mass, thyromegaly or thyroid tenderness. Cardiovascular: Rate and Rhythm: Normal rate and regular rhythm. Heart sounds: No murmur heard. Pulmonary: Effort: Pulmonary effort is normal. No respiratory distress. Breath sounds: Normal breath sounds. No wheezing, rhonchi or rales. Abdominal: Tenderness: There is no right CVA tenderness or left CVA tenderness. Lymphadenopathy: Head: Right side of head: No submandibular, tonsillar or preauricular adenopathy. Left side of head: No submandibular, tonsillar or preauricular adenopathy. Cervical: No cervical adenopathy. Skin: General: Skin is warm. Neurological: Mental Status: She is alert and oriented to person, place, and time. Cranial Nerves: Cranial nerves are intact. Motor: No tremor (No tremor of outstretched hands). Psychiatric: Mood and Affect: Mood and affect normal. Judgment: Judgment normal. Assessment and Plans: 1. 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 Euthyroid exam Recent TSH within targets. The current dose of levothyroxine can be continued. An electronic prescription was sent to the mail-order pharmacy. - levothyroxine (SYNTHROID) 125 mcg tablet; Take 1 tablet by mouth once daily. Dispense: 90 tablet; Refill: 3 2. Chronic lymphocytic thyroiditis Treat with levothyroxine 3. Long-term current use of thyroid hormone replacement therapy On levothyroxine I reviewed the use of levothyroxine products. Taking properly. 4. History of gastric bypass Peak weight prior to surgery 280 pounds Lowest weight post surgery 165 Selvin Ayala MD [facility] [place] -------- documented in this encounter [facility] documented as of this encounter (statuses as of 09/20/2021) [facility] History of Past illness Narrative* Problem Noted Date Resolved Date Morbid obesity 01/05/2017 11/28/2017 Chronic lymphocytic thyroiditis 10/19/2020 documented as of this encounter (statuses as of 01/10/2022) [facility] History of Past illness Narrative* Problem Noted Date Resolved Date Morbid obesity 01/05/2017 11/28/2017 Chronic lymphocytic thyroiditis 10/19/2020 documented as of this encounter (statuses as of 01/17/2022) [facility] History of Past illness Narrative* Problem Noted Date Resolved Date Morbid obesity 01/05/2017 11/28/2017 Chronic lymphocytic thyroiditis 10/19/2020 documented as of this encounter (statuses as of 01/17/2022) [facility] History of Past illness Narrative* Problem Noted Date Resolved Date Morbid obesity 01/05/2017 11/28/2017 Chronic lymphocytic thyroiditis 10/19/2020 documented as of this encounter (statuses as of 07/14/2022) [facility] History of Past illness Narrative* Problem Noted Date Resolved Date Morbid obesity 01/05/2017 11/28/2017 Chronic lymphocytic thyroiditis 10/19/2020 documented as of this encounter (statuses as of 07/20/2022) [facility] History of Past illness Narrative* Problem Noted Date Resolved Date Morbid obesity 01/05/2017 11/28/2017 Chronic lymphocytic thyroiditis 10/19/2020 documented as of this encounter (statuses as of 07/20/2022) [facility] History of Past illness Narrative* Problem Noted Date Resolved Date Morbid obesity 01/05/2017 11/28/2017 Chronic lymphocytic thyroiditis 10/19/2020 documented as of this encounter (statuses as of 08/27/2022) [facility] History of Past illness Narrative* Problem Noted Date Resolved Date Morbid obesity 01/05/2017 11/28/2017 Chronic lymphocytic thyroiditis 10/19/2020 documented as of this encounter (statuses as of 08/29/2022) [facility] History of Past illness Narrative* Problem Noted Date Resolved Date Morbid obesity 01/05/2017 11/28/2017 Chronic lymphocytic thyroiditis 10/19/2020 documented as of this encounter (statuses as of 09/12/2022) [facility] History of Past illness Narrative* Problem Noted Date Diagnosed Date Resolved Date Morbid obesity 01/05/2017 11/28/2017 Chronic lymphocytic thyroiditis 10/19/2020 documented as of this encounter (statuses as of 11/14/2022) [facility] History of Past illness Narrative* Problem Noted Date Diagnosed Date Resolved Date Morbid obesity 01/05/2017 11/28/2017 Chronic lymphocytic thyroiditis 10/19/2020 documented as of this encounter (statuses as of 02/16/2023) [facility] History of Past illness Narrative* Problem Noted Date Diagnosed Date Resolved Date Morbid obesity 01/05/2017 11/28/2017 Chronic lymphocytic thyroiditis 10/19/2020 documented as of this encounter (statuses as of 02/22/2023) [facility] History of Past illness Narrative* Problem Noted Date Diagnosed Date Resolved Date Morbid obesity 01/05/2017 11/28/2017 Chronic lymphocytic thyroiditis 10/19/2020 documented as of this encounter (statuses as of 03/08/2023) [facility] History of Past illness Narrative* Problem Noted Date Diagnosed Date Resolved Date Morbid obesity 01/05/2017 11/28/2017 Chronic lymphocytic thyroiditis 10/19/2020 documented as of this encounter (statuses as of 03/27/2023) [facility] note* Diagnosis 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 Chronic lymphocytic thyroiditis Long-term current use of thyroid hormone replacement therapy History of gastric bypass Bariatric surgery status documented in this encounter [facility] note* Diagnosis Localized enlarged lymph nodes- Primary Enlargement of lymph nodes documented in this encounter [facility] note* Diagnosis Lymphadenopathy, cervical- Primary Enlargement of lymph nodes documented in this encounter [facility] note* Diagnosis LAD (lymphadenopathy), supraclavicular- Primary Enlargement of lymph nodes documented in this encounter [facility] note* Diagnosis Localized enlarged lymph nodes Enlargement of lymph nodes documented in this encounter [facility] note* Diagnosis 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 Encounter for medication management Encounter for long-term (current) use of other medications Long-term current use of levothyroxine Chronic lymphocytic thyroiditis History of gastric bypass Bariatric surgery status [facility] Diagnosis Localized enlarged lymph nodes- Primary Enlargement of lymph nodes documented in this encounter [facility] note* Diagnosis Lymphadenopathy, axillary- Primary Enlargement of lymph nodes [facility]* Diagnosis 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 Mantle cell lymphoma, lymph nodes of axilla and upper limb Encounter for preprocedural cardiovascular examination Pre-operative cardiovascular examination History of histiocytosis History of breast cancer Personal history of malignant neoplasm of breast documented in this encounter [facility] for referral (narrative)* Outpatient Procedure (Routine) - Authorized Specialty Diagnoses / Procedures Referred By Farhad clark Ref[facility] Diagnoses Mantle cell lymphoma of axilla (HCC) Encounter for preprocedural cardiovascular examination Procedures ECHO ECHO TTHRC R-T 2D W/WOM-MODE COMPL SPEC&[place] [address] [id number] [facility] [place] [address] [place] [address] Referral ID Status Reason Start Date Expiration Date Visits Requested Visits Authorized [id number] Authorized Auto-Generat ed Referral 03/30/2023 03/15/2024 1 1 * Diagnostic Procedure Only (Urgent) - Authorized Specialty Diagnoses / Procedures Referred By Farhad clark Referred To Contact [facility]LEC[facility] FUNCTION[facility] IMAGING Diagnoses Mantle cell lymphoma of axilla (HCC) Procedures NM PET/CT SKULL-THIGH INITIAL PET IMAGING CT ATTENUATION SKULL B[place] [address] [phone] [facility] [address] [place] [address] Referral ID Status Reason Start Date Expiration Date Visits Requested Visits Authorized [id number] Authorized Auto-Generat ed Referral 03/30/2023 04/14/2024 1 1 [facility] Summary Purpose Family History No Family History Records FoundNo Family History Records FoundNo Family History Records FoundNo Family History Records FoundNo Family History Records FoundNo Family History Records Found Advance Directives No Advanced Directives Records FoundDocuments on File Type Date Recorded 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 Advance Directive(s) 05/10/2021 5:54 PM Advance Directive(s) 01/27/2021 11:41 AM Advance Directive(s) 10/12/2018 10:58 PM Advance Directive(s) 02/04/2018 11:10 AM Advance Directive(s) 12/04/2017 8:00 AM Advance Directive(s) 09/06/2017 3:35 PM Advance Directive(s) 10/28/2016 11:24 AM Documents on File Type Date Recorded 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 Advance Directive(s) 02/04/2018 11:10 AM Documents on File Type Date Recorded Patient Truck Switcher Expl anataramis Advance Directive(s) 02/04/2018 11:10 AM Reason for Referral Specialty Diagnoses / Procedures Referred By Contac t Referred To Contact CT IMAGING Diagnoses Localized enlarged lymph nodes Procedures CT NECK SOFT TISSUE W IVCON CT SOFT TISSUE NECK W/CONTRAST MATERIAL Sugar Hanks MD [address] [address] [address] Imaging Referral ID Status Reason Start Date Expiration Date V isits Requested Visits Authorized [id number] Closed Auto-Generate d Referral 07/19/2022 02/17/2023 1 1 Additional Source Comments INFORMATION SOURCE (unrecogn ized section and content) DATE CREATED AUTHOR AUTHOR'S ORGANIZ ATION 05/13/2020 [facility] DATE CREATED AUTHOR AUTHOR'S ORGANIZ ATION 04/28/2021 [facility] DATE CREATED AUTHOR AUTHOR'S ORGANIZ ATION 03/11/2023 [facility] DATE CREATED AUTHOR AUTHOR'S ORGANIZ ATION 04/02/2023 [facility] DATE CREATED AUTHOR AUTHOR'S ORGANIZ ATION 04/08/2023 [facility] Source Comments (unrecognize d section and content) In the event this informatio n is protected by the Federal Confidentiality of Alcohol and Drug Abuse Patient Records regulations: The Federal rules restrict any use of the information to criminally investigate or prosecute any alcohol or drug abuse patient.[facility] the event this information is protected by the Federal Confidentiality of Alcohol and Drug Abuse Patient Records regulations: The Federal rules restrict any use of the information to criminally investigate or prosecute any alcohol or drug abuse patient.[facility] the event this information is protected by the Federal Confidentiality of Alcohol and Drug Abuse Patient Records regulations: The Federal rules restrict any use of the information to criminally investigate or prosecute any alcohol or drug abuse patient.[facility] the event this information is protected by the Federal Confidentiality of Alcohol and Drug Abuse Patient Records regulations: The Federal rules restrict any use of the information to criminally investigate or prosecute any alcohol or drug abuse patient.[facility] the event this information is protected by the Federal Confidentiality of Alcohol and Drug Abuse Patient Records regulations: The Federal rules restrict any use of the information to criminally investigate or prosecute any alcohol or drug abuse patient.[facility] the event this information is protected by the Federal Confidentiality of Alcohol and Drug Abuse Patient Records regulations: The Federal rules restrict any use of the information to criminally investigate or prosecute any alcohol or drug abuse patient.[facility] the event this information is protected by the Federal Confidentiality of Alcohol and Drug Abuse Patient Records regulations: The Federal rules restrict any use of the information to criminally investigate or prosecute any alcohol or drug abuse patient.[facility] the event this information is protected by the Federal Confidentiality of Alcohol and Drug Abuse Patient Records regulations: The Federal rules restrict any use of the information to criminally investigate or prosecute any alcohol or drug abuse patient.[facility] the event this information is protected by the Federal Confidentiality of Alcohol and Drug Abuse Patient Records regulations: The Federal rules restrict any use of the information to criminally investigate or prosecute any alcohol or drug abuse patient.[facility] the event this information is protected by the Federal Confidentiality of Alcohol and Drug Abuse Patient Records regulations: The Federal rules restrict any use of the information to criminally investigate or prosecute any alcohol or drug abuse patient.[facility] the event this information is protected by the Federal Confidentiality of Alcohol and Drug Abuse Patient Records regulations: The Federal rules restrict any use of the information to criminally investigate or prosecute any alcohol or drug abuse patient.[facility] the event this information is protected by the Federal Confidentiality of Alcohol and Drug Abuse Patient Records regulations: The Federal rules restrict any use of the information to criminally investigate or prosecute any alcohol or drug abuse patient.[facility] the event this information is protected by the Federal Confidentiality of Alcohol and Drug Abuse Patient Records regulations: The Federal rules restrict any use of the information to criminally investigate or prosecute any alcohol or drug abuse patient.[facility] the event this information is protected by the Federal Confidentiality of Alcohol and Drug Abuse Patient Records regulations: The Federal rules restrict any use of the information to criminally investigate or prosecute any alcohol or drug abuse patient.[facility] the event this information is protected by the Federal Confidentiality of Alcohol and Drug Abuse Patient Records regulations: The Federal rules restrict any use of the information to criminally investigate or prosecute any alcohol or drug abuse patient.[facility] Reason for Visit (unrecogniz ed section and content) Reason Comments Consult Review CT scan, biop sy of lymph node Specialty Diagnoses / Procedures Referred By Contac t Referred To Contact CT IMAGING Diagnoses Localized enlarged lymph nodes Procedures CT NECK SOFT TISSUE W IVCON CT SOFT TISSUE NECK W/CONTRAST MATERIAL Sugar Hanks MD [address] [address] [address] Imaging Referral ID Status Reason Start Date Expiration Date V isits Requested Visits Authorized [id number] Closed Auto-Generate d Referral 07/19/2022 02/17/2023 1 1 Reason Comments Abstract Reason Comments Hypothyroidism Thyroid Problem Follow Up Reason Comments Lymphadenopathy Reason Comments Consult Lymphoma Care Teams (unrecognized sec tion and content) [employer] Safety Engineer Relationship Specialty Start Date End Date Nereida Green MD [address] [phone] PCP - General Internal Medicine 12/04/17 [employer] Safety Engineer Relationship Specialty Start Date End Date Nereida Green MD [address] [phone] PCP - General Internal Medicine 12/04/17 [employer] Safety Engineer Relationship Specialty Start Date End Date Nereida Green MD [address] [phone] PCP - General Internal Medicine 12/04/17 [employer] Safety Engineer Relationship Specialty Start Date End Date Nereida Green MD [address] [address] PCP - General Internal Medicine 12/04/17 [employer] Safety Engineer Relationship Specialty Start Date End Date Nereida Green MD [address] [address] PCP - General Internal Medicine 12/04/17 [employer] Safety Engineer Relationship Specialty Start Date End Date Nereida Green MD [address] [address] PCP - General Internal Medicine 12/04/17 [employer] Safety Engineer Relationship Specialty Start Date End Date Nereida Green MD [address] [address] PCP - General Internal Medicine 12/04/17 [employer] Safety Engineer Relationship Specialty Start Date End Date Nereida Green MD [address] [address] PCP - General Internal Medicine 12/04/17 [employer] Safety Engineer Relationship Specialty Start Date End Date Nereida Green MD [address] [address] PCP - General Internal Medicine 12/04/17 [employer] Safety Engineer Relationship Specialty Start Date End Date Nereida Green MD [address] [address] PCP - General Internal Medicine 12/04/17 FOR RECORDS PERTAINING TO PATIENTS WHO ARE OR HAVE BEEN ENROLLED IN A CHEMICAL DEPENDENCY/SUBSTANCEABUSE PROGRAM, SOME INFORMATION MAY BE OMITTED. This clinical summary was aggregated from multiple sources. Caution should be exercised in using it in the provision of clinical care. This summary normalizes information from multiple sources, and as a consequence, information in this document may materially change the coding, format and clinical context of patient data. In addition, data may be omitted in some cases. CLINICAL DECISIONS SHOULD BE BASED ON THE PRIMARY CLINICAL RECORDS. [facility] [employer] [facility]. provides no warranty or guarantee of the accuracy or completeness of information in this document.
== END | disposition home or self-care (01) ==
LOC: OPBI 09:44
PROVIDERS: Referring Provider Internal Medicine
DX: Z12.31 Encounter for screening mammogram for malignant neoplasm of breast (principal); R59.0 Localized enlarged lymph nodes; Z80.3 Family history of malignant neoplasm of breast; Z85.3 Personal history of malignant neoplasm of breast
CPT/HCPCS: 77063; 77067

== ENCOUNTER → 2024-04-10 | Outpatient (CLI) | payer MEDICARE, OTHER, SELFPAY ==
--- NOTE | 2024-04-10 10:58 | BI_ITS ---
MAMMOGRAPHY - BILATERAL SCREENING REASON FOR EXAM: Female, 73 years old. Routine annual screening examination. PERTINENT HISTORY: Personal history of breast cancer. Prior left lumpectomy. Breast cancer. Aunt with breast cancer. TECHNIQUE: Digital bilateral breast thai (3D mammographic acquisition) in the CC and MLO projections. 2-D mediolateral oblique (MLO) and craniocaudad (CC) views of both breasts were obtained. CAD: Full Field Digital Mammography with Computer Added Detection was performed. COMPARISON: Comparison is made with prior study dated April 09, 2023 and April 06, 2022. FINDINGS: Breast Composition: There are scattered areas of fibroglandular density. There are no dominant masses or suspicious calcifications. Once again, the patient status post lumpectomy in the deep upper lateral aspect of the left breast. Postoperative scarring is seen. No other significant abnormalities are identified. There has been no significant change since the prior study. BI/SCRN MAMM (CAD)W/THAI BILAT IMPRESSION: Stable bilateral screening mammogram. Yearly follow-up mammogram recommended. (A) ASSESSMENT CATEGORY: BIRADS Category 2: Benign. A letter regarding these results will be sent to the patient by the facility within 30 days. Approximately 10% of breast cancers are not detected by mammography. A normal mammogram should not delay biopsy of a clinically suspicious abnormality. [id number] Electronically Signed: Zeke Metzger MD at 14:07 EST ,
== END | disposition home or self-care (01) ==
LOC: OPBI 10:56
DX: Z12.31 Encounter for screening mammogram for malignant neoplasm of breast (principal); Z85.3 Personal history of malignant neoplasm of breast
CPT/HCPCS: 77063; 77067

== ENCOUNTER 2024-04-11 06:57 | Day surgery (SDC) | payer MEDICARE, OTHER, SELFPAY ==
--- NOTE | 2024-04-08 16:15 | PAT.ANESEVAL ---
Pre-Assessment Diagnosis/Proposed Procedure Planned Operative Procedure(s): RIGHT FOOT HARVEST OF CALCANEAL BONE GRAFT,CAPSULOTOMY OF THE FIRST METATARSAL PHALANGEAL JOINT,ARTHRODESIS OF THE FIRST TARSOMETATARSAL JOINT WITH POSS SHELLI OSTEOTOMY,CORRECTION OF SECOND DIGIT HAMMRTOE POSS SECOND DIGIT TENDON TRANSFER WITH APPLICATION OF A POSTERIOR SPLINT Anesthesia History Anesthesia History - gis consultant: Anesthesia History - gis consultant Hx Hospitalization No 04/07/24 15:12 Any Problems With Anesthesia No 04/07/24 15:12 Cholinesterase deficiency No 04/07/24 15:12 You/Your Family Experience No 04/07/24 15:12 fever (hyperthermia) with Relationship Recent Exposure to Contagious Disease Does patient have nerve No 04/07/24 15:12 stimulator Patient instructed to have device shut off --Does patient have Pacemaker or ICD? When Was Last Pacemaker Check QUESTION #4 FULL TEXT: You/Your Family Experience fever (hyperthermia) with Anesthesia Last Oral Intake Last Oral intake: Last Oral Intake NPO since Meds taken in AM with sips of water? Meds patient instructed to take am of surgery PONV PONV - gis consultant: PONV - gis consultant Female Yes 04/07/24 15:12 HX of Motion Sickness No 04/07/24 15:12 HX of N/V After Surgery No 04/07/24 15:12 Non-Smoker Yes 04/07/24 15:12 Duration of Surgery greater Yes 04/07/24 15:12 than 60 minutes Number of Risk Factors 3 04/07/24 15:12 PONV Score Moderate Risk 04/07/24 15:12 Respiratory Assessment Respiratory Assessment - gis consultant: Respiratory Tract Infection Hx - gis consultant Hx Respiratory Tract Infection No 04/07/24 15:12 STOP Sleep Apnea STOP Sleep Apnea - gis consultant: STOP Sleep Apnea - gis consultant Hx Hypertension Yes: CONTROLLED WITH MED 04/07/24 15:12 Hx Sleep Apnea Yes 04/07/24 15:12 CPAP No: HAS NOT USED FOR 8 YRS 04/07/24 15:12 BIPAP No 04/07/24 15:12 Do you snore loudly (louder No 04/07/24 15:12 than talking or can be heard Do you often feel tired/ No 04/07/24 15:12 fatigued/ sleepy during daytime? Has anyone observed you stop No 04/07/24 15:12 breathing during sleep? STOP Results Positive 04/07/24 15:12 QUESTION #5 FULL TEXT : Do you snore loudly (louder than talking or can be heard through closed doors)? Tobacco Use History Tobacco Use History - gis consultant: Tobacco Use History - gis consultant Tobacco Use Smoking Status Never smoker 04/07/24 15:12 Hx Tobacco Use No 04/07/24 15:12 Years Smoking Packs Smoked per Day Smoking Cessation Date was within the last 15 years Hx Smoking Cessation Date Hx Smoking Cessation Counseling Hematologic Medial History Hematologic Hx - gis consultant: Hematologic Medical Hx - manager book Hx of Blood Transfusion No 04/07/24 15:12 Hx of Transfusion in last 3 No 04/07/24 15:12 Months Date of Last Transfusion (if within last 3 months) Ever experience any problems No 04/07/24 15:12 with transfusion(s)? Specify any problems Hx of Preganancy in last 3 No 04/07/24 15:12 Months Nurse Filling Out Transfusion DSCHRIBER 04/07/24 15:12 & Questions: Date: 04/07/24 04/07/24 15:12 Time: 15:13 04/07/24 15:12 Patient unable to answer at this time (ie. confused, unrespo /Reproduction History /Reproductive History - gis consultant: /Reproductive Hx- gis consultant Hx Now No 04/07/24 15:12 Gestational Age (in weeks): EDC: Hx Hx Para Hx Section SAB No 04/07/24 15:12 PFSH Medical History (Updated 04/07/24 @ 15:23 by Berta Bullock) Wears glasses Wears contact lenses Post-menopausal Cancer Depression Gastric reflux Non-smoker CPAP (continuous positive airway pressure) dependence History of stress test Hypertension Mantle cell lymphoma Thyroid disease Lymphedema Home Medications ?Medication ?Instructions ?Recorded ?Last Taken ?Type ANTI AGING 1 cap PO DAILY 04/07/24 Unknown History LUNARICH LUNASIN 1 drp buccal QHS 04/07/24 Unknown History amlodipine 2.5 mg tablet 2.5 mg PO QHS 04/07/24 Unknown History calcium 500 mg (as 1 tab PO DAILY 04/07/24 Unknown History carbonate)-vitamin D3 3.125 mcg (125 unit) tablet levothyroxine 112 mcg tablet 112 mcg PO DAILY 04/07/24 Unknown History (Synthroid) multivitamin (Daily Multi-Vitamin 1 tab PO DAILY 04/07/24 Unknown History tablet) omeprazole 40 mg capsule,delayed 40 mg PO DAILY 04/07/24 Unknown History release paroxetine HCl 10 mg tablet 10 mg PO DAILY 04/07/24 Unknown History simvastatin 10 mg tablet 10 mg PO QHS 04/07/24 Unknown History zinc gluconate 50 mg tablet 50 mg PO DAILY 04/07/24 Unknown History Allergy/AdvReac Type Severity Reaction Status Date / Time No Known Allergies Allergy Verified 04/07/24 15:05 Surgical History (Updated 04/07/24 @ 15:30 by Berta Bullock) S/P panniculectomy Hx of colonoscopy Hx of bariatric surgery Hx of shoulder surgery Hx of lymph node excision History of lumpectomy of left breast History of laparoscopic cholecystectomy Hx of nasal septoplasty Hx of tubal ligation Hx of tonsillectomy Social History Smoking Status: Never smoker Audit: Pertinent Findings Pertinent Findings EKG Perinent findings: 02/12/2024. Sinus rhythm. Borderline left axis deviation. Recommendation Anesthesia Recommendation Anesthesia recommendation: OPTIMIZED for anesthesia
[2024-04-11] VITALS (12 sets, daily range): BP systolic 105–137; BP diastolic 61–78; PULSE 74–92; RESP 12–18; TEMP 36.5–37.1; O2SAT 95–100; BMI 36.6
--- NOTE | 2024-04-11 07:45 | RAD_ITS ---
EXAM: XR RIGHT FOOT, 2 VIEWS CLINICAL INDICATION: HARVEST OF CALCANEAL BONE GRAFT RT FOOT TECHNIQUE: Frontal and lateral views of the right foot. COMPARISON: No relevant prior studies available. FINDINGS: BONES/JOINTS: Frontal and lateral fluoroscopic spot views of the right foot obtained in the OR for bone harvesting. Subsequent surgical fixation of the first tarsometatarsal joint. SOFT TISSUES: No soft tissue swelling or gas. See surgical report for further information. RAD/Foot 2 Views IMPRESSION: As above Electronically Signed: Ephraim Fuentes MD at 10:16 EST ,
[2024-04-11 08:08] LABS: Magnesium 2.1 mg/dL (1.6-2.6)
[2024-04-11] MEDS: Acetaminophen 500 MG Tablet 1000 MG PO (08:11)
[2024-04-11] MEDS: Gabapentin 600 MG Tablet PO (08:11)
[2024-04-11] MEDS: 0.9% Normal Saline (1000mL) 1,000 ML 15 ML IV (08:16)
--- NOTE | 2024-04-11 08:23 | PCM.PRE.AN2 ---
ASA Classification* ASA Classification ASA Classification: 2 Assessment & Plan Anesthesia* Anesthesia Assessment Anesthesia Assessment: Discussed sedation and/or anesthesia options, risks, benefits, and alternatives with patient/parents/legal guardian/POA. Questions invited. The patient/parents/legal guardian/POA seems to understand and agrees to proceed with anesthesia plan. Reviewed the physical assessment, medical history, allergy history and patient home medications list prior to surgery/procedure/anesthetic and documented any changes. Performed airway and anesthesia risk assessments. Anesthesia Type Anesthesia Type: General and Block (Patient is consented for popliteal block.) History Source History Obtained from:: Patient and Chart Anesthesia Focused Assessment* Temperature: 98.8 F Pulse Rate: 79 Blood Pressure: 131/78 Respiratory Rate: 16 Pulse Ox: 98 Oxygen Delivery Method: Room Air Airway Assessment Mouth opens: >3 cm Mallampati Score: III Teeth Condition: Caps/Crowns (Patient has multiple crowns. 2 implants. They are all tight) and Missing (1 missing tooth right lower molar.) Neck Range of motion (ROM): Limited ROM (Somewhat decreased extension) Focused Labs Anesthesia Preop lab: CBC CHEMISTRY Magnesium 2.1 mg/dL (1.6-2.6) 04/11/24 07:50 COAG Pre-Assessment Diagnosis/Proposed Procedure Planned Operative Procedure(s): RIGHT FOOT HARVEST OF CALCANEAL BONE GRAFT,CAPSULOTOMY OF THE FIRST METATARSAL PHALANGEAL JOINT,ARTHRODESIS OF THE FIRST TARSOMETATARSAL JOINT WITH POSS SHELLI OSTEOTOMY,CORRECTION OF SECOND DIGIT HAMMRTOE POSS SECOND DIGIT TENDON TRANSFER WITH APPLICATION OF A POSTERIOR SPLINT Anesthesia History 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 When Was Last Pacemaker Check QUESTION #4 FULL TEXT: You/Your Family Experience fever (hyperthermia) with Anesthesia Last Oral Intake Last Oral intake: Last Oral Intake NPO since 05:30 04/11/24 07:47 Meds taken in AM with sips of Yes 04/11/24 07:47 water? Meds patient instructed to SNYTHROID,OMEPRAZOLE 04/11/24 07:47 take am of surgery PAXIL IF NEEDED Any additional information?: Yes NPO since: 05:30 (Patient had her preop Ensure at 5:30 AM.) Meds taken in AM with sips of water?: Yes PONV PONV - oceanic sciences professor: PONV - oceanic sciences professor Female Yes 04/07/24 15:12 HX of Motion Sickness No 04/07/24 15:12 HX of N/V After Surgery No 04/07/24 15:12 Non-Smoker Yes 04/07/24 15:12 Duration of Surgery greater Yes 04/07/24 15:12 than 60 minutes Number of Risk Factors 3 04/07/24 15:12 PONV Score Moderate Risk 04/07/24 15:12 Height & Weight Height & Weight: Anesthesia: Height & Weight Height 5 ft 3 in 04/11/24 07:47 Weight: 93.7 kg 04/11/24 07:47 Body Mass Index (BMI) 36.6 04/11/24 07:47 Respiratory Assessment Respiratory Assessment - oceanic sciences professor: Respiratory Tract Infection Hx - oceanic sciences professor Hx Respiratory Tract Infection No 04/07/24 15:12 STOP Sleep Apnea STOP Sleep Apnea - oceanic sciences professor: STOP Sleep Apnea - oceanic sciences professor Hx Hypertension Yes: CONTROLLED WITH MED 04/07/24 15:12 Hx Sleep Apnea Yes 04/07/24 15:12 CPAP No: HAS NOT USED FOR 8 YRS 04/07/24 15:12 BIPAP No 04/07/24 15:12 Do you snore loudly (louder No 04/07/24 15:12 than talking or can be heard Do you often feel tired/ No 04/07/24 15:12 fatigued/ sleepy during daytime? Has anyone observed you stop No 04/07/24 15:12 breathing during sleep? STOP Results Positive 04/07/24 15:12 QUESTION #5 FULL TEXT : Do you snore loudly (louder than talking or can be heard through closed doors)? 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 Specify any problems Hx of Preganancy in last 3 No 04/07/24 15:12 Months Nurse Filling Out Transfusion DSCHRIBER 04/07/24 15:12 & Questions: Date: 04/07/24 04/07/24 15:12 Time: 15:13 04/07/24 15:12 Patient unable to answer at this time (ie. 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: /Reproductive Hx- oceanic sciences professor Hx Now No 04/07/24 15:12 Gestational Age (in weeks): EDC: Hx Hx Para Hx Section SAB No 04/07/24 15:12 Active Medications Active Medications: Current Medications Generic Name Dose Route Start Last Admin Trade Name Freq PRN Reason Stop Dose Admin Acetaminophen 1,000 mg 04/11/24 09:30 04/11/24 08:11 Acetaminophen 500 Mg Tablet PO 04/11/24 09:31 1,000 mg X1 ONE Administration Gabapentin 600 mg 04/11/24 09:30 04/11/24 08:11 Gabapentin 600 Mg Tablet PO 04/11/24 09:31 600 mg X1 ONE Administration Cefazolin Sodium 2 gm/ N/A 20 mls @ 400 mls/hr 04/11/24 09:30 IV 04/11/24 09:32 PREOP ONE Sodium Chloride 1,000 mls @ 15 mls/hr 04/11/24 08:15 04/11/24 08:16 IV 04/14/24 02:54 15 mls/hr .Q48H EULA Administration Protocol Insulin Human Lispro 1 - 6 unit 04/11/24 09:30 Insulin Lispro 100 Unit/Ml Insuln.Pen SC 04/11/24 15:00 Q4H PRN PRN BG>/= 180, SEE PROTOCOL Protocol PFSH Medical History Wears glasses Wears contact lenses Post-menopausal Cancer Depression Gastric reflux Non-smoker CPAP (continuous positive airway pressure) dependence History of stress test Hypertension Mantle cell lymphoma Thyroid disease Lymphedema Home Medications ?Medication ?Instructions ?Recorded ?Last Taken ?Type ANTI AGING 1 cap PO DAILY 04/07/24 Unknown History LUNARICH LUNASIN 1 drp buccal QHS 04/07/24 Unknown History amlodipine 2.5 mg tablet 2.5 mg PO QHS 04/07/24 Unknown History calcium 500 mg (as 1 tab PO DAILY 04/07/24 Unknown History carbonate)-vitamin D3 3.125 mcg (125 unit) tablet levothyroxine 112 mcg tablet 112 mcg PO DAILY 04/07/24 Unknown History (Synthroid) multivitamin (Daily Multi-Vitamin 1 tab PO DAILY 04/07/24 Unknown History tablet) omeprazole 40 mg capsule,delayed 40 mg PO DAILY 04/07/24 Unknown History release paroxetine HCl 10 mg tablet 10 mg PO DAILY 04/07/24 Unknown History simvastatin 10 mg tablet 10 mg PO QHS 04/07/24 Unknown History zinc gluconate 50 mg tablet 50 mg PO DAILY 04/07/24 Unknown History Allergy/AdvReac Type Severity Reaction Status Date / Time No Known Allergies Allergy Verified 04/07/24 15:05 Surgical History S/P panniculectomy Hx of colonoscopy Hx of bariatric surgery Hx of shoulder surgery Hx of lymph node excision History of lumpectomy of left breast History of laparoscopic cholecystectomy Hx of nasal septoplasty Hx of tubal ligation Hx of tonsillectomy Social History Smoking Status: Never smoker Review of Systems (Anesthesia) ROS Narrative System reviewed and no additional complaints, except as documented.
[2024-04-11 08:26] LABS: Bedside Glucose 107 mg/dL (74-106)
[2024-04-11] MEDS: Magnesium 1 GM over 15 mins IV (08:42)
[2024-04-11] MEDS: Cefazolin 2 GM in Syringe IV (10:12)
[2024-04-11] MEDS: Bupivacaine Mpf 0.5% 30 ML VIAL (12:06)
--- NOTE | 2024-04-11 13:12 | PCM.POST.ANE ---
Anesthesia: Postop Eval I Current Vital Signs Temperature: 97.7 F Pulse Rate: 75 Blood Pressure: 136/76 Respiratory Rate: 14 Pulse Ox: 99 Oxygen Delivery Method: Simple Mask Oxygen Flow Rate (L/min): 6 Assessment Airway patent: Yes Spontaneous unlabored respirations: No nausea: No Vomiting: No Anesthesia Complication: No Fluid Hydration Crystalloid volume administer (ml): 1,500 Total IV fluid infused: 1,500 Progress Note Anesthesia document: Postop Eval 1 completed: Yes
--- NOTE | 2024-04-11 13:20 | OP.PCM_ITS ---
Problems Associated Problem List Diagnoses (1) Primary osteoarthritis, right ankle and foot: (2) Other hammer toe(s) (acquired), right foot: (3) Chronic pain of toe of right foot: (4) Hallux valgus (acquired), right foot: Operative Report (Standard) Operative Information Date of Procedure: 04/11/24 Pre-Operative Diagnosis: 1. Hallux valgus, right foot 2. Chronic pain in toe, right foot 3. Hammertoe, right foot 4. Primary arthritis, right foot Post-Operative Diagnosis: 1. Hallux valgus, right foot 2. Chronic pain in toe, right foot 3. Hammertoe, right foot 4. Primary arthritis, right foot Surgery/Procedure Performed: Procedure #1: However still calcaneal bone graft, right foot Procedure #2: Capsulotomy first metatarsophalangeal joint, right foot Procedure #3: Arthrodesis, first tarsometatarsal joint, right foot Procedure #4: Manual stress views, right foot Procedure #5: Correction of hammertoe, second digit, right foot Procedure #6: Application of posterior splint, right lower extremity breading machine tender: Yes Armored Car Driver: JOSEPH Simmons Tasks completed by secretary administrative assistant: Closing and Implanting device Additional personnel assistant?: No Type of Anesthesia: Block,Axillary and General/Regional RN Documented Start/Stop Times: Operation Date: 04/11/24 09:30 Case Time Into Pre-Op 04/11/24 07:45 Anesthesia Start 04/11/24 10:06 Into Room 04/11/24 10:06 Procedure Start 04/11/24 10:31 Procedure End 04/11/24 13:03 Anesthesia End 04/11/24 13:09 Out of Room 04/11/24 13:09 Into Recovery 04/11/24 13:12 Out of Recovery 04/11/24 14:39 Into Phase II Recovery 04/11/24 14:41 Out of Phase II 04/11/24 16:25 Procedure Start Time: 10:31 Procedure Stop Time: 13:03 Select all DRAINS/GRAFTS/IMPLANTS that apply: Graft Graft details: 2cc Viaflow and Implanted device Implanted device details: [employer] Medications: Per anesthesia Estimated Blood Loss: 50 mL Fluids Replaced: Per anesthesia Specimen collected: No Description of surgery: Indications For Operation: Mrs. Covington is a 73-year-old female who was admitted to [facility] for right foot surgery secondary to pain and pathology due to her bunion and right second digit hammertoe. Patient is well-known to my private office and has been treated conservatively secondary to right foot pain. Patient has suffered from a bunion deformity and hammertoe deformity for many years now. After failing all conservative treatment consisting of nonsteroidal anti-inflammatories, steroid injections, [id number] pain medications, oral steroids, home physical therapy and shoe gear modification. The patient showed failing of all conservative treatments that were discussed. Patient did get some relief with shoe gear modification but due to the increase in deformity it was deemed necessary at this time to take the patient operating room to perform bunion corrective surgery as well as hammertoe corrective surgery to help decrease her constant pain. Patient was seen in private office for surgical consultation with all risk and benefit discussed with patient great detail. Chart review and consent signed. Due to worsening deformity and pain to the right foot it was deemed necessary at this time to take the patient to perform the above procedure to help decrease her constant pain to her bunion and hammertoe to the second digit right foot.. The nature of the problem, anticipated procedures, postop recovery/convalences and risk/complications include but not limited to infection, wound healing complications, digital amputation, hypertrophic scarring, numbness, tingling, chronic pain, CRPS, over and under correction, recurrence of deformity, DVT and or PE and the need for further surgery have been discussed in great detail with the patient. All questions have been answered to the patient's satisfaction. There are no guarantees given as to the outcome of the procedure. Description of Procedure: Under mild sedation, the patient was brought into the operating room and placed on the operating table in supine position. Once the patient was under general anesthesia with a [place] mask airway, the right lower extremity was blocked using approximately 10 cc 0.5% Marcaine plain. Patient will be getting a popliteal block in PACU after the surgery please see anesthesia note for further detail. Next, a well-padded thigh tourniquet was applied to the right lower ext remity. Next, the right lower extremity was prepped and draped in normal aseptic manner. Next, a timeout was then undertaken verifying the correct patient, extremity, visibility of preoperative markings, availability of the equipment. Next, attention was directed to the right lower extremity. Using a 4 inch Esmarch, right lower extremity was exsanguinated and elevated to 60 degrees for 1 minute. Procedure #1: [place] of calcaneal bone graft, right lower extremity (CPT code: 92678) Next, attention was directed to the lateral aspect of the right calcaneus. Using a #15 blade, a full-thickness incision, approximately 1 cm, was made down to bone without incident. Continued blunt dissection was carried out with curved hemostats. Using the [employer] 7 mm bone graft harvester, calcaneal bone harvest less than than 5 cc was made, then removed from the calcaneus and passed the back table to be used later in the case, for the first tarsometatarsal joint arthrodesis procedure. The incision was flushed with copious josé of normal saline. The skin was reapproximated and closed using 3-0 nylon in simple interrupted suture technique. Procedure #2, first tarsal metatarsal joint arthrodesis, right foot (CPT code: 49205/procedure #3, capsulotomy of the first metatarsal phalangeal joint (through a separate incision), right foot (CPT code: 81114) Next, attention was directed to the dorsal aspect of the right foot. Using fluoroscopy, the first tarsometatarsal joint was visualized. A longitudinal 3.5 cm incision with a #15 blade was made just medial to the extensor hallucis longus tendon. The incision was made down to the periosteum with care to retract the tendon laterally. The periosteum was reflected. The first tarsometatarsal joint was exposed and identified. Careful dissection was carried down to the level of the first tarsometatarsal joint as well as in the lateral space between the first and second metatarsal. The ligaments were then released at the tarsometatarsal joint with planing with sagittal saw and saw blade. After planing was performed, the plantar ligaments were released with the [place]. Next, through a separate incision, a capsulotomy will be performed at the lateral aspect of the first metatarsal phalangeal joint. A separate incision approximately 1 cm was made along the lateral aspect of the first metatarsophalangeal joint. Blunt dissection was carried down to the level of the first metatarsophalangeal joint. Using [employer] speed release tool, this was inserted laterally into the joint with joint fluid being exposed, then the speed release tool release the lateral ligaments. There was evidence of excellent release of the first metatarsophalangeal joint, and the metatarsal was able to be pushed laterally without soft tissue force imposing on it. The sesamoids were able to be retracted back into position which was confirmed on the large C-arm fluoroscopy. A capsulotomy incision was flushed with copious josé normal saline and closed with 3-0 nylon in simple interrupted suture technique. Next, attention was then redirected back to the first tarsometatarsal joint, the all-in-one positioner was inserted, positioning the first metatarsal into corrected position. Positioning of the cuts were confirmed with large C-arm fluoroscopy. Cuts were then made with the all-in-one device using the sagittal saw and provided blade by [employer]. The compression/distractor was applied. The joint was distracted and the cuts along the base of the first metatarsal and first cuneiform removed. Continued joint prep followed after using a combination of osteotome and curette. The joint was flushed with copious josé normal saline. Next, the joint was prepped using a fenestration with a 2- 0 drill bit along the first cuneiform and base of the first metatarsal. Next, the [place] of calcaneal bone graft autograft was then packed in the first tarsometatarsal joint. At this point, the positioner was reapplied, compression/distractor was closed down and the fulcrum was then inserted on the lateral aspect of the base of the first metatarsal. Dorsiflexion of the hallux was then performed pushing the metatarsal and tarsometatarsal joint into place. Pinning with 2 smooth K wires in crossing fashion. Next, orthogonal plating was applied using (x2) 13 mm spleed plates by [employer]. Procedure #4. Manual Stress views, right foot (CPT code: 49185) Next, stress views were then performed by squeezing the first and second interphalangeal joint and the first metatarsophalangeal joint of the right foot. There showed evidence of mild splaying. Next using the cannulated screw system by [employer] a K wire was driven from the first metatarsal to second cuneiform and a 4 oh cannulated 40 mm screw was inserted with excellent position across this area stabilizing the cuneiform and first metatarsal joint as well as its position. Procedure #5. Proximal interphalangeal joint arthrodesis, second digit, right foot (CPT code: 30006) Next, attention was directed to the dorsal aspect of the proximal interphalangeal joint of the right second digit. Using a sterile skin marker, a longitudinal incision was marked out at the level of the second metatarsal phalangeal joint and proximal interphalangeal joint of the right second digit. Using a #15 blade, a full-thickness incision down to subcutaneous tissue was made. Using sens retractors, the skin was lifted up and out and continued blunt dissection was carried down to the long extensor tendon. Once the extensor tendon was identified a plowing technique was performed on the medial and lateral aspects of the extensor tendon. A capsulotomy was performed at the proximal interphalangeal joint and the tendon was gently released to allow exposure of the proximal interphalangeal joint. The extensor tendon was removed but intact down to the level of the second metatarsal phalangeal joint. The capsule was identified and an additional capsulotomy was performed. Care was taken to identify the medial and lateral collateral ligaments of the proximal interphalangeal joint of the second digit which were released. Using a pickup and sagittal saw with a #114 blade, the head of the proximal phalanx was removed and passed the back table to be discarded. The base of the intermediate phalanx of the second digit was feathered to remove the articular cartilage to expose the subchondral bone. Using the wire water tanker driver provided by the [facility] medical surgical kit, pilot plant research technician holes were placed in the base of the intermediate phalanx and head of the proximal phalanx per the manufactures technique with the rep in the room. The implant was inserted, 0 degree implant per the human capital manager's recommendation with the rep in the room. After securing the 2 bones together there showed excellent apposition across the proximal interphalangeal joint of the second digit. The medial and lateral collateral ligaments were re- constructed using 4-0 Monocryl in simple interrupted suture technique. Extensor tendon was secured back to the proximal phalanx and physiological tension using 4-0 Monocryl and over and over suture technique. At this time the right thigh tourniquet was deflated and reperfusion was noted instantly to the right lower extremity. All bleeders were cauterized and ligated as necessary. All remaining incisions were flushed with copious normal saline. The deep layers were reapproximated closed using 3-0 Monocryl in running locking suture technique. The subcutaneous layers were reapproximated closed using 3-0 Monocryl and running suture technique. The digital incision over the second digit was reapproximated and closed with 4-0 nylon in simple interrupted suture technique. The first tarsometatarsal joint incision skin was reapproximated closed using a 4-0 nylon in horizontal mattress suture technique. 2 cc of viaflow was injected to all incisions. Procedure #6: Application of posterior splint, right foot (CPT code: 10986) Next, again the right lower extremity was wiped clean and patted dry. All incisions were dressed with Betadine soaked Adaptic, dry sterile dressing and a double layer Wayne AO splint was applied to the right lower extremity at 90 degrees. The patient tolerated the procedure and anesthesia well and apparent satisfactory condition and was transported to the PACU for further monitoring prior to discharge home. Vital signs stable and vascular status intact to all digits bilateral. Post Operative Plan: Weightbearing: Nonweightbearing right lower extremity with assistive knee scooter and or crutches. Full weightbearing left lower extremity. Antibiotics: 2 g Ancef through the IV DVT Prophylaxis: 1 mg aspirin Sood: None Dressing: Betadine soaked Adaptic dry sterile dressing double layer Wayne AO splint at 90 degrees. X-Rays: Post-operative films taken on the operating room. Pain Medication: Percocet 5/325, Flexeril 10 mg Follow-up: Patient will follow-up in 1 week in private office. Surgical Findings: 1. Evidence of corrected bunion deformity with proximal first tarsometatarsal joint arthrodesis 2. Good range of motion to the first metatarsophalangeal joint after surgery. 3. Evidence of corrected hammertoe deformity with PIPJ arthrodesis with peek implant Complications Complications: No Admit VTE Documentation VTE Mechan Device Prophylaxis: SCD's VTE Pharm Prophylaxis ordered?: Yes
--- NOTE | 2024-04-11 19:43 | POSTOPAN2_ITS ---
Anesthesia Postop Eval I Sum Postop Eval Completion status Anesthesia document: Postop Eval 1 completed: Yes Anesthesia Postop Eval I Summary Anesthesia Postop Eval I Summary: Anesthesia Postop Eval I: Assessment Summary Airway patent Yes 04/11/24 13:15 FAMILY [email or web address] [email or web address] Spontaneous unlabored No 04/11/24 13:15 FAMILY MEDICINE [email or web address] respirations Mental status nausea No 04/11/24 13:15 FAMILY MEDICINE [email or web address] Vomiting No 04/11/24 13:15 FAMILY MEDICINE [email or web address] Anesthesia Postop Eval I: Fluid Summary Crystalloid volume administer 1,500 04/11/24 13:15 FAMILY MEDICINE [email or web address] (ml) Colloids volume administered ( ml) Blood Product volume administered (ml) Total IV fluid infused 1,500 04/11/24 13:15 FAMILY MEDICINE [email or web address] Anesthesia Postop Eval I: Summary Notes Anesthesia Complication No 04/11/24 13:15 FAMILY MEDICINE [email or web address] Anesthesia Complication Comment: Post-operative progress note Anesthesia: Postop Eval II Evaluation Mental status: Awake and Calm Pain Level: 1 nausea: No Vomiting: No Complications Anesthesia Complication: No
--- NOTE | 2024-04-11 19:43 | PCM.POSTANE2 ---
Anesthesia Postop Eval I Sum Postop Eval Completion status Anesthesia document: Postop Eval 1 completed: Yes Anesthesia Postop Eval I Summary Anesthesia Postop Eval I Summary: Anesthesia Postop Eval I: Assessment Summary Airway patent Yes 04/11/24 13:15 TEST ENGINE [email or web address] Spontaneous unlabored No 04/11/24 13:15 TEST ENGINE [email or web address] respirations Mental status nausea No 04/11/24 13:15 TEST ENGINE [email or web address] Vomiting No 04/11/24 13:15 TEST ENGINE [email or web address] Anesthesia Postop Eval I: Fluid Summary Crystalloid volume administer 1,500 04/11/24 13:15 TEST ENGINE [email or web address] (ml) Colloids volume administered ( ml) Blood Product volume administered (ml) Total IV fluid infused 1,500 04/11/24 13:15 TEST ENGINE [email or web address] Anesthesia Postop Eval I: Summary Notes Anesthesia Complication No 04/11/24 13:15 TEST ENGINE [email or web address] Anesthesia Complication Comment: Post-operative progress note Anesthesia: Postop Eval II Evaluation Mental status: Awake and Calm Pain Level: 1 nausea: No Vomiting: No Complications Anesthesia Complication: No
== END 2024-04-11 16:24 | disposition home or self-care (01) ==
LOC: SDC 06:59 → AC 07:02
PROVIDERS: Referring Provider Podiatrist Foot & Ankle Surgery; Visit Provider Podiatrist Foot & Ankle Surgery
PROC: (CPT 28292; principal; 2024-04-11 09:15)
DX: M20.11 Hallux valgus (acquired), right foot (principal); C83.14 Mantle cell lymphoma, lymph nodes of axilla and upper limb; G89.29 Other chronic pain; M20.41 Other hammer toe(s) (acquired), right foot; M19.071 Primary osteoarthritis, right ankle and foot; M21.611 Bunion of right foot; I10 Essential (primary) hypertension; E78.5 Hyperlipidemia, unspecified; E03.9 Hypothyroidism, unspecified; G47.33 Obstructive sleep apnea (adult) (pediatric)
CPT/HCPCS: 28740; 20900; 28270; 28285; 01480; 73620; 76000; 82962; 83735; C1713; J2405; J3475